=== PATIENT | male | born 1935 | race Caucasian/White ===

== ENCOUNTER 2021-02-20 17:43 | Inpatient (IN) ==
[2021-02-20] MEDS ORDERED: 0.9 % SODIUM CHLORIDE 1,000 ML IV SCH (18:15)
--- NOTE | 2021-02-20 18:33 | XRay Report ---
HISTORY: Increased confusion and weakness FINDINGS: ill-defined alveolar infiltrates are developing in both lungs, predominantly in the lower lobes. This is superimposed upon underlying pulmonary fibrosis. A recent neck CT done on 02/13/21 demonstrated moderate emphysema in the upper lobes. Heart size is normal. There is no apparent congestive heart failure. A shunt catheter extends from the right side of the neck, across the right chest wall to the abdomen. Moderate arthritis is present in both shoulders. There are several calcifications inferior to the left coracoid process which may be calcified loose bodies in the joint recess. IMPRESSION: Pneumonia superimposed upon underlying emphysema and pulmonary fibrosis Interpreted and Authenticated by: Cheo Concepcion 02/20/21
--- NOTE | 2021-02-20 19:06 | Emergency Department Note ---
Altered Mental Status HPI <Nicolle Downey PA-C - Last Filed: 02/20/21 20:44> General Chief Complaint: Altered Mental Status Stated Complaint: Confusion/weakness Time Seen by Provider: 02/20/21 18:02 Source: EMS Mode of arrival: EMS Limitations: altered mental status History of Present Illness HPI Narrative: This an 85-year-old male with Alzheimer's dementia who lives at an adult care facility who was sent over by his caregivers for acute change in mental status. I spoken with his caregiver, Anastasiia, by telephone and she tells me that he became acutely confused with hallucinations this morning. He is usually verbal and jokes with his caregivers, but she states he has been nonverbal most of the day. He is diabetic and his blood glucose was 240 this morning. He had no new medications, should he is incontinent of urine but she states that his depends have had no materia or foul-smelling urine. He had normal BM just before coming over to the ER by EMS. She states that his fingers have been purple and he has had poor capillary refill. She does not know if he has a history of hear t disease. She denies that he is had any witnessed falls or traumatic events. His past medical history significant for COPD, acute urinary retention, type 2 diabetes, diabetic neuropathy, history of CVA, and left ORIF for right femoral fracture. I have reviewed the patient's CODE STATUS and he is DNR. His DPOA is Jose Martin Greene at [phone]. Caregiver at [facility] is Anastasiia [phone] Related Data Home Medications Medication Instructions Recorded Confirmed acetaminophen 500 mg tablet 500 mg PO Q4H PRN 12/21/17 02/20/21 cyanocobalamin (vitamin B-12) 100 1,000 mcg .ROUTE QWEEK 12/21/17 02/20/21 mcg/mL injection solution famotidine 20 mg tablet 20 mg PO Q12H tab 12/21/17 02/20/21 hydrocortisone 1 % topical cream 1 applic TOPICAL ONCE PRN g 12/21/17 02/20/21 insulin glargine 100 unit/mL 10 unit SUB-Q QAM ml 12/21/17 02/20/21 subcutaneous solution metformin 500 mg tablet 1,000 mg PO BID 12/21/17 02/20/21 bisacodyl 5 mg tablet 10 mg PO QHS 08/10/18 07/22/21 docusate sodium 100 mg tablet 100 mg PO BID 03/11/18 02/20/21 midodrine 10 mg tablet 5 mg PO QDAY tab 03/11/18 02/20/21 polysaccharide iron complex 150 mg 150 mg PO QDAY cap 03/11/18 02/20/21 iron capsule carboxymethylcellulose sodium 1 drp OPHTHALMIC (EYE) TID 02/13/20 02/20/21 [Artificial Tears (cmc)] flecainide 100 mg PO BID 02/13/20 02/20/21 megestrol 200 mg PO DAILY 02/13/20 02/20/21 tamsulosin 0.4 mg PO BID 02/13/20 02/20/21 bisacodyl 10 mg VA PRN PRN 02/20/21 02/20/21 bupropion HCl [Wellbutrin XL] 300 mg PO QAM 02/20/21 02/20/21 clonazepam 0.5 mg PO BID 02/20/21 02/20/21 epinephrine [EpiPen 2-Trav] 0.3 mg SUBCUT PRN PRN 02/20/21 02/20/21 eyelid cleanser combination 1 1 ea TOPICAL BID 02/20/21 02/20/21 [SteriLid] gabapentin 100 mg PO BID 02/20/21 02/20/21 loratadine [Claritin] 10 mg PO QHS 02/20/21 02/20/21 ondansetron [Zofran ODT] 4 mg PO PRN PRN 02/20/21 02/20/21 zinc sulfate 220 mg PO DAILY 02/20/21 02/20/21 Allergies Allergy/AdvReac Type Severity Reaction Status Date / Time rivastigmine [From Exelon] Allergy Unknown Unknown Verified 02/13/20 12:30 fish sauce Allergy Severe Other Uncoded 02/09/18 14:41 Review of Systems <Nicolle Downey PA-C - Last Filed: 02/20/21 20:44> ROS ROS Narrative: Narrative: PFSH <Nicolle Downey PA-C - Last Filed: 02/20/21 20:44> Narrative Patient History Narrative: Narrative: Medical/Surgical/Family History All Active Problems (Updated 02/20/21 @ 20:44 by Nicolle Downey PA-C) Sepsis (Acute) AMS (altered mental status) (Acute) SUZANNE (acute kidney injury) (Acute) Acute UTI (Acute) Acute hyperkalemia (Acute) Anemia, normocytic normochromic (Acute) Delirium (Acute) Stage 1 acute kidney injury (Acute) Hyperkalemia (Acute) T2DM (type 2 diabetes mellitus) (Acute) Clinical sepsis (Acute) Bilateral pneumonia (Acute) Fracture of greater trochanter of right femur (Acute) Chest pain (Acute) Chest pain, non-cardiac (Acute) Abnormal chest x-ray (Acute) Constipation (Acute) Fall (Acute) Hematoma of frontal scalp (Acute) Dementia (Acute) Accidental fall from wheelchair (Acute) Acute head trauma (Acute) Laceration of eyebrow and forehead (Acute) Chronic subdural hematoma (Acute) Cerumen impaction (Chronic) Hypoalbuminemia (Chronic) Hypokalemia (Chronic) History of stroke (Chronic) 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 (Chronic) Nocturia (Chronic) Alzheimer disease (Chronic) Hyperlipidemia (Chronic) 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) Hyponatremia (Chronic) Lumbago (Chronic) History of UTI (Chronic) History of urinary incontinence (Chronic) History of leukocytosis (Chronic) 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) Hypertension (Chronic) History of pneumonia (Chronic) Adult failure to thrive (Chronic) Advanced dementia (Chronic) Weakness generalized (Chronic) Anemia (Chronic) History of gastrointestinal bleeding (Chronic) History of transurethral resection of prostate (Chronic) Urinary retention (Chronic) Diabetes mellitus (Chronic) Dehydration (Chronic) Sepsis (Chronic) Severe sepsis (Chronic) Spinal stenosis of lumbar region at multiple levels (Chronic) 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) Urinary tract infection (Chronic) Acute retention of urine (Chronic) Medical History (Updated 02/20/21 @ 20:44 by Nicolle Downey PA-C) 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 Adult failure to thrive Advanced dementia Alzheimer disease Anemia Cerumen impaction COPD (chronic obstructive pulmonary disease) with chronic bronchitis Degenerative joint disease of right hip Dehydration Diabetes mellitus History of gastrointestinal bleeding History of leukocytosis History of pneumonia History of stroke History of urinary incontinence History of UTI Hyperlipidemia Hypertension Hypoalbuminemia Hypokalemia Hyponatremia Lumbago Nocturia Sepsis Severe sepsis Spinal stenosis of lumbar region at multiple levels Type 2 diabetes mellitus with peripheral neuropathy Urinary retention Weakness generalized Surgical History History of hip replacement Right, 08/2008 History of open reduction and internal fixation (ORIF) procedure Left Hip, 02/26/17 History of thumb surgery Right History of transurethral resection of prostate 2010 History of ventriculoperitoneal shunting 10/20/16 S/P orchiopexy 2013 Family History Other Diabetes Social History Smoking Status: Former smoker Alcohol Intake Frequency: does not drink Substance Use: does not use Exam <Nicolle Downey PA-C - Last Filed: 02/20/21 20:44> Narrative Narrative: Narrative: General Limitations: altered mental status Course <Nicolle Downey PA-C - Last Filed: 02/20/21 20:44> Course Course Narrative: 85 y/o male presents with acute AMS Reevaluation(s) Reevaluation #1: Check head CT without contrast CBC, CMP, UA, CXR IV and IVF's Reevaluation #2: Head CT is negative for acute changes compared to CT scan from 02/13/21. No worsening hydrocephaly. Stable chronic findings (please see radiology note for further details). CXR with developing B/L LL infiltrates. UA shows infection. CBC with WBC of 23,600 and left shift. Lactic acid 3.6. Sepsis protocol initiated 30ml/kg IVF resuscitation. Initiation of BSA with vanco/zoysn. BCX x 2 pending. Hospitalist contacted for admission---> potassium is 5.6. Cr is 1.3. Hospitalist aware and will manage. Vital Signs Vital signs: Vital Signs Temperature 98.4 F 02/20/21 17:45 Pulse Rate 86 02/20/21 17:45 Respiratory Rate 18 02/20/21 17:45 Blood Pressure 105/89 02/20/21 17:45 Pulse Oximetry (%) 93 02/20/21 17:45 Temperature 98.2 F 02/21/21 19:42 Pulse Rate 82 02/21/21 19:42 Respiratory Rate 16 02/21/21 19:42 Blood Pressure 119/64 02/21/21 19:42 Pulse Oximetry (%) 96 02/21/21 19:52 <Yaron Nieto DO - Last Filed: 02/21/21 23:51> Vital Signs Vital signs: Vital Signs Temperature 98.4 F 02/20/21 17:45 Pulse Rate 86 02/20/21 17:45 Respiratory Rate 18 02/20/21 17:45 Blood Pressure 105/89 02/20/21 17:45 Pulse Oximetry (%) 93 02/20/21 17:45 Temperature 98.2 F 02/21/21 19:42 Pulse Rate 82 02/21/21 19:42 Respiratory Rate 16 02/21/21 19:42 Blood Pressure 119/64 02/21/21 19:42 Pulse Oximetry (%) 96 02/21/21 19:52 MDM <Nicolle Downey PA-C - Last Filed: 02/20/21 20:44> MDM Narrative Medical decision making narrative: Sepsis Altered mental status UTI SZUANNE Hyperkalemia Sepsis treatments have been initiated. BSA started and bcx x 2 pending. Admitted to the hospitalist service, Dr. Redd Lab Data Result diagrams: 02/21/21 05:27 02/21/21 05:27 Labs: Lab Results 02/20/21 02/20/21 02/20/21 Range/Units 18:30 18:30 18:30 WBC 25.6 H (4.5-11.0) K/mcL RBC 4.03 L (4.50-5.90) M/mcL Hgb 12.2 L (13.5-16.5) g/dL Hct 38.8 L (41.0-55.0) % MCV 96.3 (80.0-100.0) fL MCH 30.3 (26.0-34.0) pg MCHC 31.4 (31.0-36.0) g/dL RDW 13.2 (11.5-14.5) % Plt Count 249 (140-440) K/mcL MPV 12.1 H (7.4-10.4) fL Seg Neutrophils % 85 H (38-78) % Band Neutrophils % 3 (0-10) % Lymphocytes % 8 L (15-49) % Monocytes % (Manual) 4 (1-12) % Platelet Estimate Normal (Normal) RBC Morphology Normal (Normal) VBG Lactic Acid (0.5-2.0) mmol/L Sodium 138 (133-145) mmol/L Potassium 5.6 H (3.3-5.1) mmol/L Chloride 103 (96-108) mmol/L Carbon Dioxide 24 (22-30) mmol/L Anion Gap 11.0 (8.0-16.0) BUN 31 H (8-23) mg/dL Creatinine 1.3 H (0.7-1.2) mg/dL GFR Calculation 50 Glucose 223 H (70-105) mg/dL Hemoglobin A1c (4.0-6.0) % Hgb Estim Average Glucose mg/dL Calcium 8.8 (8.6-10.4) mg/dL Total Bilirubin 0.4 (0.1-1.0) mg/dL AST 12 (<40) U/L ALT 8 (<40) U/L Alkaline Phosphatase 94 (39-117) U/L Ammonia (16-60) umol/L Total Protein 7.5 (5.9-8.4) gm/dL Albumin 3.4 (3.2-5.2) gm/dL Globulin 4.1 H (2.2-3.7) gm/dL Albumin/Globulin Ratio 0.8 L (1.0-2.3) Procalcitonin 0.20 H (<0.10) ng/mL Urine Color Urine Appearance (Clear) Urine pH (5.0-9.0) Ur Specific [place] (1.000-1.035) Urine Protein (Negative) mg/dL Urine Glucose (UA) (Negative) mg/dL Urine Ketones (Negative) mg/dL Urine Occult Blood (Negative) mg/dL Urine Nitrate (Negative) Urine Bilirubin (Negative) mg/dL Urine Urobilinogen mg/dL Ur Leukocyte Esterase (Negative) /ug Urine RBC (0-3) /hpf Urine WBC (0-4) /hpf Ur Squamous Epith Cells (0-4) /hpf Urine Bacteria (0) /hpf Urine Mucus (None) /hpf Ur Culture Indicated? 02/20/21 02/20/21 02/20/21 Range/Units 18:30 18:39 19:40 WBC (4.5-11.0) K/mcL RBC (4.50-5.90) M/mcL Hgb (13.5-16.5) g/dL Hct (41.0-55.0) % MCV (80.0-100.0) fL MCH (26.0-34.0) pg MCHC (31.0-36.0) g/dL RDW (11.5-14.5) % Plt Count (140-440) K/mcL MPV (7.4-10.4) fL Seg Neutrophils % (38-78) % Band Neutrophils % (0-10) % Lymphocytes % (15-49) % Monocytes % (Manual) (1-12) % Platelet Estimate (Normal) RBC Morphology (Normal) VBG Lactic Acid 3.6 H (0.5-2.0) mmol/L Sodium (133-145) mmol/L Potassium (3.3-5.1) mmol/L Chloride (96-108) mmol/L Carbon Dioxide (22-30) mmol/L Anion Gap (8.0-16.0) BUN (8-23) mg/dL Creatinine (0.7-1.2) mg/dL GFR Calculation Glucose (70-105) mg/dL Hemoglobin A1c 7.1 H (4.0-6.0) % Hgb Estim Average Glucose 157 mg/dL Calcium (8.6-10.4) mg/dL Total Bilirubin (0.1-1.0) mg/dL AST (<40) U/L ALT (<40) U/L Alkaline Phosphatase (39-117) U/L Ammonia (16-60) umol/L Total Protein (5.9-8.4) gm/dL Albumin (3.2-5.2) gm/dL Globulin (2.2-3.7) gm/dL Albumin/Globulin Ratio (1.0-2.3) Procalcitonin (<0.10) ng/mL Urine Color Yellow Urine Appearance Cloudy A (Clear) Urine pH 5.0 (5.0-9.0) Ur Specific [place] 1.013 (1.000-1.035) Urine Protein 30 A (Negative) mg/dL Urine Glucose (UA) Negative (Negative) mg/dL Urine Ketones Negative (Negative) mg/dL Urine Occult Blood Negative (Negative) mg/dL Urine Nitrate Negative (Negative) Urine Bilirubin Negative (Negative) mg/dL Urine Urobilinogen Negative mg/dL Ur Leukocyte Esterase 500 A (Negative) /ug Urine RBC 20 H (0-3) /hpf Urine WBC > 182 H (0-4) /hpf Ur Squamous Epith Cells 2 (0-4) /hpf Urine Bacteria Many A (0) /hpf Urine Mucus Mod A (None) /hpf Ur Culture Indicated? yes 02/20/21 Range/Units 20:38 WBC (4.5-11.0) K/mcL RBC (4.50-5.90) M/mcL Hgb (13.5-16.5) g/dL Hct (41.0-55.0) % MCV (80.0-100.0) fL MCH (26.0-34.0) pg MCHC (31.0-36.0) g/dL RDW (11.5-14.5) % Plt Count (140-440) K/mcL MPV (7.4-10.4) fL Seg Neutrophils % (38-78) % Band Neutrophils % (0-10) % Lymphocytes % (15-49) % Monocytes % (Manual) (1-12) % Platelet Estimate (Normal) RBC Morphology (Normal) VBG Lactic Acid (0.5-2.0) mmol/L Sodium (133-145) mmol/L Potassium (3.3-5.1) mmol/L Chloride (96-108) mmol/L Carbon Dioxide (22-30) mmol/L Anion Gap (8.0-16.0) BUN (8-23) mg/dL Creatinine (0.7-1.2) mg/dL GFR Calculation Glucose (70-105) mg/dL Hemoglobin A1c (4.0-6.0) % Hgb Estim Average Glucose mg/dL Calcium (8.6-10.4) mg/dL Total Bilirubin (0.1-1.0) mg/dL AST (<40) U/L ALT (<40) U/L Alkaline Phosphatase (39-117) U/L Ammonia 21 (16-60) umol/L Total Protein (5.9-8.4) gm/dL Albumin (3.2-5.2) gm/dL Globulin (2.2-3.7) gm/dL Albumin/Globulin Ratio (1.0-2.3) Procalcitonin (<0.10) ng/mL Urine Color Urine Appearance (Clear) Urine pH (5.0-9.0) Ur Specific [place] (1.000-1.035) Urine Protein (Negative) mg/dL Urine Glucose (UA) (Negative) mg/dL Urine Ketones (Negative) mg/dL Urine Occult Blood (Negative) mg/dL Urine Nitrate (Negative) Urine Bilirubin (Negative) mg/dL Urine Urobilinogen mg/dL Ur Leukocyte Esterase (Negative) /ug Urine RBC (0-3) /hpf Urine WBC (0-4) /hpf Ur Squamous Epith Cells (0-4) /hpf Urine Bacteria (0) /hpf Urine Mucus (None) /hpf Ur Culture Indicated? ED POC Tests ED POC Tests: ALANNA - SARS Antigen Negative <Yaron Nieto DO - Last Filed: 02/21/21 23:51> Lab Data Labs: Lab Results 02/20/21 02/20/21 02/20/21 Range/Units 18:30 18:30 18:30 WBC 25.6 H (4.5-11.0) K/mcL RBC 4.03 L (4.50-5.90) M/mcL Hgb 12.2 L (13.5-16.5) g/dL Hct 38.8 L (41.0-55.0) % MCV 96.3 (80.0-100.0) fL MCH 30.3 (26.0-34.0) pg MCHC 31.4 (31.0-36.0) g/dL RDW 13.2 (11.5-14.5) % Plt Count 249 (140-440) K/mcL MPV 12.1 H (7.4-10.4) fL Seg Neutrophils % 85 H (38-78) % Band Neutrophils % 3 (0-10) % Lymphocytes % 8 L (15-49) % Monocytes % (Manual) 4 (1-12) % Platelet Estimate Normal (Normal) RBC Morphology Normal (Normal) VBG Lactic Acid (0.5-2.0) mmol/L Sodium 138 (133-145) mmol/L Potassium 5.6 H (3.3-5.1) mmol/L Chloride 103 (96-108) mmol/L Carbon Dioxide 24 (22-30) mmol/L Anion Gap 11.0 (8.0-16.0) BUN 31 H (8-23) mg/dL Creatinine 1.3 H (0.7-1.2) mg/dL GFR Calculation 50 Glucose 223 H (70-105) mg/dL Hemoglobin A1c (4.0-6.0) % Hgb Estim Average Glucose mg/dL Calcium 8.8 (8.6-10.4) mg/dL Total Bilirubin 0.4 (0.1-1.0) mg/dL AST 12 (<40) U/L ALT 8 (<40) U/L Alkaline Phosphatase 94 (39-117) U/L Ammonia (16-60) umol/L Total Protein 7.5 (5.9-8.4) gm/dL Albumin 3.4 (3.2-5.2) gm/dL Globulin 4.1 H (2.2-3.7) gm/dL Albumin/Globulin Ratio 0.8 L (1.0-2.3) Procalcitonin 0.20 H (<0.10) ng/mL Urine Color Urine Appearance (Clear) Urine pH (5.0-9.0) Ur Specific [place] (1.000-1.035) Urine Protein (Negative) mg/dL Urine Glucose (UA) (Negative) mg/dL Urine Ketones (Negative) mg/dL Urine Occult Blood (Negative) mg/dL Urine Nitrate (Negative) Urine Bilirubin (Negative) mg/dL Urine Urobilinogen mg/dL Ur Leukocyte Esterase (Negative) /ug Urine RBC (0-3) /hpf Urine WBC (0-4) /hpf Ur Squamous Epith Cells (0-4) /hpf Urine Bacteria (0) /hpf Urine Mucus (None) /hpf Ur Culture Indicated? 02/20/21 02/20/21 02/20/21 Range/Units 18:30 18:39 19:40 WBC (4.5-11.0) K/mcL RBC (4.50-5.90) M/mcL Hgb (13.5-16.5) g/dL Hct (41.0-55.0) % MCV (80.0-100.0) fL MCH (26.0-34.0) pg MCHC (31.0-36.0) g/dL RDW (11.5-14.5) % Plt Count (140-440) K/mcL MPV (7.4-10.4) fL Seg Neutrophils % (38-78) % Band Neutrophils % (0-10) % Lymphocytes % (15-49) % Monocytes % (Manual) (1-12) % Platelet Estimate (Normal) RBC Morphology (Normal) VBG Lactic Acid 3.6 H (0.5-2.0) mmol/L Sodium (133-145) mmol/L Potassium (3.3-5.1) mmol/L Chloride (96-108) mmol/L Carbon Dioxide (22-30) mmol/L Anion Gap (8.0-16.0) BUN (8-23) mg/dL Creatinine (0.7-1.2) mg/dL GFR Calculation Glucose (70-105) mg/dL Hemoglobin A1c 7.1 H (4.0-6.0) % Hgb Estim Average Glucose 157 mg/dL Calcium (8.6-10.4) mg/dL Total Bilirubin (0.1-1.0) mg/dL AST (<40) U/L ALT (<40) U/L Alkaline Phosphatase (39-117) U/L Ammonia (16-60) umol/L Total Protein (5.9-8.4) gm/dL Albumin (3.2-5.2) gm/dL Globulin (2.2-3.7) gm/dL Albumin/Globulin Ratio (1.0-2.3) Procalcitonin (<0.10) ng/mL Urine Color Yellow Urine Appearance Cloudy A (Clear) Urine pH 5.0 (5.0-9.0) Ur Specific [place] 1.013 (1.000-1.035) Urine Protein 30 A (Negative) mg/dL Urine Glucose (UA) Negative (Negative) mg/dL Urine Ketones Negative (Negative) mg/dL Urine Occult Blood Negative (Negative) mg/dL Urine Nitrate Negative (Negative) Urine Bilirubin Negative (Negative) mg/dL Urine Urobilinogen Negative mg/dL Ur Leukocyte Esterase 500 A (Negative) /ug Urine RBC 20 H (0-3) /hpf Urine WBC > 182 H (0-4) /hpf Ur Squamous Epith Cells 2 (0-4) /hpf Urine Bacteria Many A (0) /hpf Urine Mucus Mod A (None) /hpf Ur Culture Indicated? yes 02/20/21 Range/Units 20:38 WBC (4.5-11.0) K/mcL RBC (4.50-5.90) M/mcL Hgb (13.5-16.5) g/dL Hct (41.0-55.0) % MCV (80.0-100.0) fL MCH (26.0-34.0) pg MCHC (31.0-36.0) g/dL RDW (11.5-14.5) % Plt Count (140-440) K/mcL MPV (7.4-10.4) fL Seg Neutrophils % (38-78) % Band Neutrophils % (0-10) % Lymphocytes % (15-49) % Monocytes % (Manual) (1-12) % Platelet Estimate (Normal) RBC Morphology (Normal) VBG Lactic Acid (0.5-2.0) mmol/L Sodium (133-145) mmol/L Potassium (3.3-5.1) mmol/L Chloride (96-108) mmol/L Carbon Dioxide (22-30) mmol/L Anion Gap (8.0-16.0) BUN (8-23) mg/dL Creatinine (0.7-1.2) mg/dL GFR Calculation Glucose (70-105) mg/dL Hemoglobin A1c (4.0-6.0) % Hgb Estim Average Glucose mg/dL Calcium (8.6-10.4) mg/dL Total Bilirubin (0.1-1.0) mg/dL AST (<40) U/L ALT (<40) U/L Alkaline Phosphatase (39-117) U/L Ammonia 21 (16-60) umol/L Total Protein (5.9-8.4) gm/dL Albumin (3.2-5.2) gm/dL Globulin (2.2-3.7) gm/dL Albumin/Globulin Ratio (1.0-2.3) Procalcitonin (<0.10) ng/mL Urine Color Urine Appearance (Clear) Urine pH (5.0-9.0) Ur Specific [place] (1.000-1.035) Urine Protein (Negative) mg/dL Urine Glucose (UA) (Negative) mg/dL Urine Ketones (Negative) mg/dL Urine Occult Blood (Negative) mg/dL Urine Nitrate (Negative) Urine Bilirubin (Negative) mg/dL Urine Urobilinogen mg/dL Ur Leukocyte Esterase (Negative) /ug Urine RBC (0-3) /hpf Urine WBC (0-4) /hpf Ur Squamous Epith Cells (0-4) /hpf Urine Bacteria (0) /hpf Urine Mucus (None) /hpf Ur Culture Indicated? ED POC Tests ED POC Tests: ALANNA - SARS Antigen Negative Discharge Plan Patient/Caregiver Discharge Instructions Pt seen by JEWEL BEARING BROACHER/PA only: Yes Clinical Impression: Sepsis, AMS (altered mental status), SUZANNE (acute kidney injury), Acute UTI, Acute hyperkalemia Patient Disposition: Xfer As Inpt ([facility]) Condition: Serious Discharge Date/Time: 02/20/21 21:18
[2021-02-20 19:11] LABS: Hematocrit 38.8 % (41.0-55.0); Hemoglobin 12.2 g/dL (13.5-16.5); Mean Cell Volume 96.3 fL (80.0-100.0); Mean Corpuscular HGB Conc 31.4 g/dL (31.0-36.0); Mean Platelet Volume 12.1 fL (7.4-10.4); Platelet Count 249 K/mcL (140-440); RBC 4.03 M/mcL (4.50-5.90); Red Cell Distribution Width 13.2 % (11.5-14.5); WBC 25.6 K/mcL (4.5-11.0)
[2021-02-20] MEDS ORDERED: cefTRIAXone 1 GM VIAL IV ONE (19:17)
[2021-02-20] MEDS ORDERED: 0.9 % SODIUM CHLORIDE 1,000 ML IV ONE (19:19)
[2021-02-20] MEDS ORDERED: VANCOMYCIN PER PHARMACY IV ONE (19:20)
[2021-02-20] MEDS ORDERED: PIPERACILLIN SODIUM/TAZOBACTAM 3.375 GM in DEXTROSE 5% IN WATER 50 ML IV ONE (19:21)
[2021-02-20] MEDS ORDERED: VANCOMYCIN 1,500 MG in 0.9 % SODIUM CHLORIDE 500 ML IV ONE (19:21)
[2021-02-20 19:29] LABS: ALT/SGPT 8 U/L (<40); AST/SGOT 12 U/L (<40); Albumin 3.4 gm/dL (3.2-5.2); Albumin/Globulin Ratio 0.8 (1.0-2.3); Alkaline Phosphatase 94 U/L (39-117); Bilirubin,Total 0.4 mg/dL (0.1-1.0); Blood Urea Nitrogen 31 mg/dL (8-23); Calcium 8.8 mg/dL (8.6-10.4); Carbon Dioxide 24 mmol/L (22-30); Chloride 103 mmol/L (96-108); Globulin 4.1 gm/dL (2.2-3.7); Glomerular Filtration Rate 50; Glucose 223 mg/dL (70-105)
[2021-02-20 19:55] LABS: Appearance,Urine CLOUDY (Clear); Bacteria,Urine MANY /hpf (0); Bilirubin,Urine Negative (Negative); Color,Urine Yellow; Culture Indicated,Urine yes; Glucose,Urine (UA) Negative (Negative); Ketones,Urine Negative (Negative); Leukocyte Esterase,Urine 500 /ug (Negative); Mucus,Urine MOD /hpf; Nitrate,Urine Negative (Negative); Protein,Urine 30 mg/dL (Negative); Specific Gravity,Urine 1.013 (1.000-1.035); Urine Blood Negative (Negative); Urine RBC 20 /hpf (0-3); Urine Squamous Epithelial Cell 2 /hpf (0-4); Urine WBC > 182 /hpf (0-4); Urobilinogen,Urine Negative
[2021-02-20] MEDS ORDERED: FUROSEMIDE 20 MG/2 ML VIAL IV ONE (19:59)
[2021-02-20] MEDS ORDERED: DEXTROSE 31 GM ORAL.SUSP PO PRN (20:13)
[2021-02-20] MEDS ORDERED: DEXTROSE 50% 50 ML VIAL IV PRN (20:13)
[2021-02-20] MEDS ORDERED: ONDANSETRON 4 MG/2 ML VIAL IV PRN (20:14)
[2021-02-20] MEDS ORDERED: INSULIN REGULAR, HUMAN 1 UNIT/0.01 ML UNIT SQ ONE (20:14)
[2021-02-20] MEDS ORDERED: IPRATROPIUM/ALBUTEROL 3 ML AMPUL.NEB NEB PRN (20:16)
--- NOTE | 2021-02-20 20:25 | Internal Med History&Physical ---
HPI History of Present Illness Patient information: Note initiated : 02/20/21 at 8:22 pm Service Date, if different from initiated Date: [] Patient: Kiet Braun a 85 y/o M admitted on for Confusion/weakness. Chief Complaint: [altered mental status] History of present illness: Mr. Braun is a 85 year old M history of Alzheimer dementia, s/p [employer] shunt, type 2 diabetes mellitus, presenting with 1 day history of altered mental status. Patient is a adult family home residence. He had an episode of accidental fall on February 13, 2021 and he was seen in our ER for suturing of a scalp ulcer. He was in his usual state of health until this morning found by facility staff to be lethargic and altered mental status and minimally responsive to voice. As a result, EMS was called to send patient to our ER for evaluations. Vital signs within normal limits. Labs significant for leukocytosis with WBC 25.6. Serum creatinine level slightly elevated to 1.3. Serum potassium level elevated to 5.6. Lactic acid pending. UA suggests the presence of urinary tract infections. Chest x-ray reading potential bilateral lung base pneumonia. CT of the head no contrast showed absence of any acute intracranial pathologies. Spoke with son and POA Jose Martin Castellon, who comfirmed DNI DNR but okay for medical treatment for infection. Review of Systems ROS unobtainable: due to mental status PFSH PFSH All Active Problems (Updated 02/20/21 @ 20:22 by Juan Alberto Redd MD) Anemia, normocytic normochromic (Acute) Delirium (Acute) Stage 1 acute kidney injury (Acute) Hyperkalemia (Acute) T2DM (type 2 diabetes mellitus) (Acute) Clinical sepsis (Acute) Bilateral pneumonia (Acute) Fracture of greater trochanter of right femur (Acute) Chest pain (Acute) Chest pain, non-cardiac (Acute) Abnormal chest x-ray (Acute) Constipation (Acute) Fall (Acute) Hematoma of frontal scalp (Acute) Dementia (Acute) Accidental fall from wheelchair (Acute) Acute head trauma (Acute) Laceration of eyebrow and forehead (Acute) Chronic subdural hematoma (Acute) Cerumen impaction (Chronic) Hypoalbuminemia (Chronic) Hypokalemia (Chronic) History of stroke (Chronic) 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 (Chronic) Nocturia (Chronic) Alzheimer disease (Chronic) Hyperlipidemia (Chronic) 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) Hyponatremia (Chronic) Lumbago (Chronic) History of UTI (Chronic) History of urinary incontinence (Chronic) History of leukocytosis (Chronic) 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) Hypertension (Chronic) History of pneumonia (Chronic) Adult failure to thrive (Chronic) Advanced dementia (Chronic) Weakness generalized (Chronic) Anemia (Chronic) History of gastrointestinal bleeding (Chronic) History of transurethral resection of prostate (Chronic) Urinary retention (Chronic) Diabetes mellitus (Chronic) Dehydration (Chronic) Sepsis (Chronic) Severe sepsis (Chronic) Spinal stenosis of lumbar region at multiple levels (Chronic) 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) Urinary tract infection (Chronic) Acute retention of urine (Chronic) Medical History (Updated 02/20/21 @ 20:22 by Juan Alberto Redd MD) 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 Adult failure to thrive Advanced dementia Alzheimer disease Anemia Cerumen impaction COPD (chronic obstructive pulmonary disease) with chronic bronchitis Degenerative joint disease of right hip Dehydration Diabetes mellitus History of gastrointestinal bleeding History of leukocytosis History of pneumonia History of stroke History of urinary incontinence History of UTI Hyperlipidemia Hypertension Hypoalbuminemia Hypokalemia Hyponatremia Lumbago Nocturia Sepsis Severe sepsis Spinal stenosis of lumbar region at multiple levels Type 2 diabetes mellitus with peripheral neuropathy Urinary retention Weakness generalized Surgical History History of hip replacement Right, 08/2008 History of open reduction and internal fixation (ORIF) procedure Left Hip, 02/26/17 History of thumb surgery Right History of transurethral resection of prostate 2010 History of ventriculoperitoneal shunting 10/20/16 S/P orchiopexy 2013 Family History Other Diabetes Social History (Updated 03/11/18 @ 11:15 by Brown Olivares MD) housing: assisted living facility marital status: occupational status: retired alcohol intake frequency: does not drink substance use type: does not use MEDS/ALLERGIES Home Medications and Allergies Home Medications Medication Instructions Recorded Confirmed Type acetaminophen 500 mg tablet 500 mg PO Q4H PRN 12/21/17 02/13/20 History cyanocobalamin (vitamin B-12) 100 1,000 mcg .ROUTE QWEEK 12/21/17 02/13/20 History mcg/mL injection solution famotidine 20 mg tablet 20 mg PO Q12H tab 12/21/17 02/13/20 History hydrocortisone 1 % topical cream 1 applic TOPICAL ONCE PRN g 12/21/17 02/13/20 History insulin glargine 100 unit/mL 10 unit SUB-Q QAM ml 12/21/17 02/13/20 History subcutaneous solution metformin 500 mg tablet 1,000 mg PO BID 12/21/17 02/13/20 History bisacodyl 5 mg tablet 10 mg PO QHS 03/11/18 02/13/20 History bupropion HCl 150 mg 24 hr tablet, 150 mg PO QAM 03/11/18 02/13/20 History extended release docusate sodium 100 mg tablet 100 mg PO QDAY 03/11/18 02/13/20 History midodrine 10 mg tablet 5 mg PO QDAY tab 03/11/18 02/13/20 History polysaccharide iron complex 150 mg 150 mg PO QDAY cap 03/11/18 02/13/20 History iron capsule carboxymethylcellulose sodium 1 drp OPHTHALMIC (EYE) TID 02/13/20 02/13/20 History [Artificial Tears (cmc)] flecainide 100 mg PO BID 02/13/20 02/13/20 History fluticasone furoate 2 spray INTRANASAL QDAY 02/13/20 02/13/20 History megestrol 200 mg PO DAILY 02/13/20 02/13/20 History tamsulosin 0.4 mg PO BID 02/13/20 02/13/20 History Allergies Allergy/AdvReac Type Severity Reaction Status Date / Time rivastigmine [From Exelon] Allergy Unknown Unknown Verified 02/13/20 12:30 fish sauce Allergy Severe Other Uncoded 02/09/18 14:41 EXAM Constitutional Vitals: Temp Pulse Resp BP Pulse Ox 36.9 C 85 18 136/57 95 02/20/21 17:45 02/20/21 19:49 02/20/21 17:45 02/20/21 19:46 02/20/21 19:49 General appearance: no acute distress; no cooperative Exam: Lethargic and not responsive to voice Head Head exam: Absent atraumatic and normocephalic Additional comments: Left frontal scalp ulcer with sutures in place Eye Eye exam: Present EOMI and PERRL ENT ENT exam: Present mucous membranes moist, normal exam and normal external ear exam Additional comments: Nasal cannula in place Neck Neck exam: Present normal inspection; Absent lymphadenopathy, tenderness and thyromegaly Respiratory Respiratory exam: Absent accessory muscle use, respiratory distress and wheezes Cardiovascular Cardiovascular exam: Present normal rate and rhythm; Absent JVD GI/Abdominal GI/Abdominal exam: Present normal bowel sounds and soft; Absent organomegaly and tenderness Rectal Rectal exam: Present deferred Extremities Exam Extremities exam: Present full ROM, normal capillary refill and normal inspection; Absent tenderness Neurological Exam Neurological exam: Absent alert, CN II-XII intact, motor sensory deficit and oriented X3 Additional comments: Cranial nerve cannot be examined due to clinical situations Lethargic Not following verbal command No focal deficits observed Psychiatric Psychiatric exam: Present normal affect and normal mood; Absent anxious and depressed Skin Skin exam: Present dry and intact DATA Data Completed and Pending Labs: Labs from last 24 hours 02/20/21 02/20/21 02/20/21 19:40 18:39 18:30 WBC 25.6 H RBC 4.03 L Hgb 12.2 L Hct 38.8 L MCV 96.3 MCH 30.3 MCHC 31.4 RDW 13.2 Plt Count 249 MPV 12.1 H Platelet Estimate Pending RBC Morphology Pending VBG Lactic Acid Pending Sodium Potassium Chloride Carbon Dioxide Anion Gap BUN Creatinine GFR Calculation Glucose Calcium Total Bilirubin AST ALT Alkaline Phosphatase Total Protein Albumin Globulin Albumin/Globulin Ratio Urine Color Yellow Urine Appearance Cloudy A Urine pH 5.0 Ur Specific [place] 1.013 Urine Protein 30 A Urine Glucose (UA) Negative Urine Ketones Negative Urine Occult Blood Negative Urine Nitrate Negative Urine Bilirubin Negative Urine Urobilinogen Negative Ur Leukocyte Esterase 500 A Urine RBC 20 H Urine WBC > 182 H Ur Squamous Epith Cells 2 Urine Bacteria Many A Urine Mucus Mod A Ur Culture Indicated? yes 02/20/21 18:30 WBC RBC Hgb Hct MCV MCH MCHC RDW Plt Count MPV Platelet Estimate RBC Morphology VBG Lactic Acid Sodium 138 Potassium 5.6 H Chloride 103 Carbon Dioxide 24 Anion Gap 11.0 BUN 31 H Creatinine 1.3 H GFR Calculation 50 Glucose 223 H Calcium 8.8 Total Bilirubin 0.4 AST 12 ALT 8 Alkaline Phosphatase 94 Total Protein 7.5 Albumin 3.4 Globulin 4.1 H Albumin/Globulin Ratio 0.8 L Urine Color Urine Appearance Urine pH Ur Specific [place] Urine Protein Urine Glucose (UA) Urine Ketones Urine Occult Blood Urine Nitrate Urine Bilirubin Urine Urobilinogen Ur Leukocyte Esterase Urine RBC Urine WBC Ur Squamous Epith Cells Urine Bacteria Urine Mucus Ur Culture Indicated? A/P Assessment and plan (1) Anemia, normocytic normochromic: Status: Acute (2) Delirium: Status: Acute (3) Stage 1 acute kidney injury: Status: Acute (4) Hyperkalemia: Status: Acute (5) Clinical sepsis: Status: Acute (6) Bilateral pneumonia: Status: Acute (7) Type 2 diabetes mellitus with peripheral neuropathy: Status: Chronic (8) Alzheimer disease: Status: Chronic Narrative A/P Narrative: Assessment and Plans: 1. Delirium: DDx UTI with sepsis, pnuemonia with sepsis, progression of Alzheimer's dementia Admit to inpatient med surg Serial lactic acid Procalcitonin Ammonia level Blood culture X2 Urine culture CoVID PCR Nasal cannula oxygen titrate to achieve spo2 >=92% 2L NS bolus followed by D5NS@100cc/hr Tylenol PRN fever DuoNEB NEB q4hr PRN wheezing or SOB Rocephin Zithromax cbc w/ auto diff in the morning to trend WBC Keep patient NPO until cleared by speech therapist for swallowing evaluation 2. h/o Alzheimer's dementia complicating acute delirium: Treat underlying causes of acute delirium including UTI+/- pneumonia 3. Hyperkalemia: Serum potassium 5.6 No aggressive/invasive measures such as dialysis, confirmed with son POA Albuterol, calcium gluconate, Dextrose with regular insulin, and Lasix IV to be given in the ED Kayexalate contraindicated given mental status ECG Repeat CMP to trend serum potassium level 4. Stage 1 acute kidney injury: Avoid nephrotoxic agents IV fluid (NS bolus and D5NS continuous infusion) as per #3 Repeat CMP to trend kidney functions 5. Normocytic normochromic anemia: cbc w/ auto diff in the morning to trend H/H, transfuse pRBC if hemoglobin <7.0, active bleeding, or symptomatic 6. T2DM: HgA1c Hold Metformin or any other oral hypoglycemics Lantus 10 unit daily Insulin Aspart medium dose correctional scale q6hr Accu Chek q6hr Hypoglycemia protocol NPO with D5NS@100cc/hr until cleared by speech therapist for swallowing evaluation GI ppx: Protonix IV DVT ppx: Heparin 5000 unit SQ BID Code status: DNI DNR Prognosis: extremely guarded Disposition: inpatient med surg; PT OT SLT consulted for d/c planning Time Spent With Patient Time: Total time spent is greater than 50% in coordination of care (as documented) at patient's floor/unit and/or counseling patient: Total time spent with greater than 50% in coordination of care (as documented) at patient's floor/unit and/or counseling patient:: 25 - 35 minutes
[2021-02-20] MEDS ORDERED: cefTRIAXone 1 GM in DEXTROSE 5% IN WATER 50 ML IV SCH (20:30)
[2021-02-20 20:47] LABS: Band Neutrophils % 3 % (0-10); Lymphocytes % 8 % (15-49); Monocytes % (Manual) 4 % (1-12); Platelet Estimate NORMAL (Normal); RBC Morphology NORMAL (Normal); Segmented Neutrophils % 85 % (38-78)
[2021-02-20] MEDS ORDERED: AZITHROMYCIN 500 MG VIAL IV ONE (21:58)
[2021-02-20] MEDS: AZITHROMYCIN 500 MG in DEXTROSE 5% IN WATER 250 ML IV SCH (22:30)
[2021-02-20] MEDS: DEXTROSE 5%-NS 1,000 ML IV SCH (22:31)
[2021-02-20] MEDS: SENNOSIDES 1 TABLET PO SCH (22:33)
[2021-02-20] MEDS: DOCUSATE SODIUM 100 MG CAPSULE PO SCH (22:34)
[2021-02-20] MEDS: 0.9 % SODIUM CHLORIDE 10 ML SYRINGE IV SCH (22:35)
[2021-02-20] MEDS: HEPARIN 5,000 UNIT/ML VIAL SQ SCH (22:40)
[2021-02-20 22:53] LABS: Hemoglobin A1C 7.1 % Hgb (4.0-6.0)
[2021-02-21] MEDS: cefTRIAXone 1 GM VIAL IV SCH ×2 (00:12→12:00)
[2021-02-21] MEDS: INSULIN LISPRO 1 UNIT/0.01 ML UNIT SQ SCH ×4 (00:27→17:20)
[2021-02-21] MEDS: 0.9 % SODIUM CHLORIDE 10 ML SYRINGE IV SCH ×3 (05:40→23:26)
[2021-02-21 07:21] LABS: Basophils # (Auto) 0.07 K/mcL (0.00-0.20); Basophils % (Auto) 0.4 % (0.0-2.0); Eosinophils # (Auto) 0.13 K/mcL (0.00-0.70); Eosinophils % (Auto) 0.8 % (0.0-7.0); Hematocrit 36.1 % (41.0-55.0); Hemoglobin 11.1 g/dL (13.5-16.5); Lymphocytes % (Auto) 15.8 % (15.0-49.0); Mean Cell Volume 97.8 fL (80.0-100.0); Mean Corpuscular HGB Conc 30.7 g/dL (31.0-36.0); Mean Platelet Volume 12.2 fL (7.4-10.4); Monocytes # (Auto) 0.81 K/mcL (0.10-0.90); Monocytes % (Auto) 4.9 % (1.0-12.0); Neutrophils % (Auto) 78.1 % (38.0-78.0); Platelet Count 220 K/mcL (140-440); RBC 3.69 M/mcL (4.50-5.90); Red Cell Distribution Width 13.2 % (11.5-14.5); WBC 16.4 K/mcL (4.5-11.0)
[2021-02-21] MEDS: PANTOPRAZOLE 40 MG VIAL IV SCH (07:40)
[2021-02-21] MEDS: DEXTROSE 5%-NS 1,000 ML IV SCH ×2 (07:42→17:19)
[2021-02-21 07:49] LABS: ALT/SGPT 6 U/L (<40); AST/SGOT 13 U/L (<40); Albumin 2.5 gm/dL (3.2-5.2); Albumin/Globulin Ratio 0.6 (1.0-2.3); Alkaline Phosphatase 80 U/L (39-117); Bilirubin,Total 0.5 mg/dL (0.1-1.0); Blood Urea Nitrogen 24 mg/dL (8-23); Calcium 8.4 mg/dL (8.6-10.4); Carbon Dioxide 21 mmol/L (22-30); Chloride 108 mmol/L (96-108); Globulin 4.3 gm/dL (2.2-3.7); Glomerular Filtration Rate 78; Glucose 114 mg/dL (70-105)
--- NOTE | 2021-02-21 07:51 | Cat Scan Report ---
History: Acute confusion, prior stroke TECHNIQUE: The brain was imaged without contrast in axial plane at 2.5 mm intervals. Radiation exposure was limited using dose reduction technology. FINDINGS: There is a large old infarct with encephalomalacia involving the right temporal and parietal lobes. This also involves a small portion of the right occipital lobe. There is another smaller infarct or gliosis surrounding the ventricular peritoneal shunt catheter in the right frontal lobe. A moderate-sized old lacunar infarct is present in the head of the left caudate nucleus. There is a more subtle lacunar infarct inferiorly in the left putamen. Tiny lacunar infarcts are seen in the head of the right caudate nucleus. The infarcts are a chronic finding which were present on prior CTs done on 02/13/2021 and 05/17/2020. No acute infarct is detected. There is no hemorrhage or mass effect. A ventricular peritoneal shunt catheter passes through the frontal horn of the right lateral ventricle and through the septum pellucidum into the body of the left lateral ventricle. Lateral and third ventricles remain moderately dilated. Fourth ventricle is normal in size. There is noted transependymal reabsorption of CSF. Size of the ventricles has not changed since 05/17/20. Patient still has bilateral subdural hygroma surrounding the frontal and parietal lobes. This is largest is located over the left parietal lobe where it measures up to 11 mm. These have not changed since 02/13/21. No midline shift is present. IMPRESSION: Multiple old infarcts which remain stable No evidence of acute infarct, hemorrhage or mass lesion. Stable hydrocephalus. Stable bilateral subdural hygromas Nicolle Downey was called with the report Interpreted and Authenticated by: Cheo Concepcion 02/21/21
[2021-02-21] MEDS: INSULIN GLARGINE, HUMAN 1 UNIT/0.01 ML SQ SCH (08:54)
[2021-02-21] MEDS: HEPARIN 5,000 UNIT/ML VIAL SQ SCH (08:55)
[2021-02-21] MEDS: DOCUSATE SODIUM 100 MG CAPSULE PO SCH ×2 (08:55→23:13)
[2021-02-21] MEDS ORDERED: ACETAMINOPHEN 500 MG TABLET PO PRN (11:56)
[2021-02-21] MEDS ORDERED: BISACODYL 10 MG SUPP.RECT PR PRN (11:56)
[2021-02-21] MEDS: ACETAMINOPHEN 325 MG TABLET PO PRN ×2 (12:00→20:34)
--- NOTE | 2021-02-21 12:08 | Internal Med Progress Note ---
SUBJECTIVE Subjective Patient information: Note initiated : 02/21/21 at 12:02 pm Service Date, if different from initiated Date: [] Patient: Kiet Braun 86 y/o M admitted on 02/20/21 for Confusion/weakness. Chief Complaint: [UTI and/or pneumonia] 02/21/21: afebrile overnight. Tolerating room air. Blood and urine cultures no growth to date. Patient is nonverbal. Constitutional Vitals: Vital Signs Temp Pulse Resp BP Pulse Ox 36.2 C 87 18 119/58 91 02/21/21 07:41 02/21/21 07:41 02/21/21 07:41 02/21/21 07:41 02/21/21 07:41 Period Temp Pulse Resp BP Sys/Gilbert Pulse Ox Last 24 Hr 36.2 C-37.2 C 77-87 16-18 94-136/52-89 91-98 Intake and Output 02/20/21 02/21/21 02/21/21 21:59 05:59 13:59 Intake Total 2027 272 918 Output Total 1 Balance 2027 272 917 Weight 72.121 kg Intake & Output: Intake & Output 02/20/21 02/21/21 02/21/21 21:59 05:59 13:59 Intake Total 2027 272 918 Output Total 1 Balance 2027 272 917 Weight 72.121 kg Intake: IV 2027 272 918 Sodium Chloride 0.9% 1,000 ml @ 2000 Wide Open IV BOLUS ONE Rx#: [id number] Zithromax 500 mg In Dextrose 5% 250 in Water 250 ml @ 250 mls/hr IV DAILY [facility] Rx#:[id number] Dextrose 5%-Ns IV Solution 1, 918 000 ml @ 100 mls/hr IV .Q10H [facility] Rx#:[id number] Zosyn 3.375 gm In Dextrose 5% 28 22 in Water 50 ml @ 100 mls/hr IV ONCE ONE Rx#:[id number] Output: # of times incontinent of urine 1 Other: Urine Appearance Straight Cloudy Stool Size Large Stool Color Brown Stool Consistency Soft # Voids 3 1 General appearance: cooperative and no acute distress Head Head exam: Present atraumatic and normocephalic Eye Eye exam: Present EOMI and PERRL ENT ENT exam: Present mucous membranes moist, normal exam and normal external ear exam Neck Neck exam: Present normal inspection; Absent lymphadenopathy, tenderness and thyromegaly Respiratory Respiratory exam: Absent accessory muscle use, respiratory distress and wheezes Additional comments: Bibasilar respiratory crackles Cardiovascular Cardiovascular exam: Present normal rate and rhythm; Absent JVD GI/Abdominal GI/Abdominal exam: Present normal bowel sounds and soft; Absent organomegaly and tenderness Rectal Rectal exam: Present deferred Extremities Exam Extremities exam: Present full ROM, normal capillary refill and normal inspection; Absent tenderness Neurological Exam Neurological exam: Absent alert, CN II-XII intact, motor sensory deficit and oriented X3 Psychiatric Psychiatric exam: Present normal affect and normal mood; Absent anxious and depressed Skin Skin exam: Present dry and intact OBJ DATA Labs CBC & Chem 7: 02/21/21 05:27 02/21/21 05:27 Labs: Abnormal Lab Results 02/21/21 02/21/21 02/20/21 05:27 05:27 19:40 WBC 16.4 H RBC 3.69 L Hgb 11.1 L Hct 36.1 L MCHC 30.7 L MPV 12.2 H Neut % (Auto) 78.1 H Seg Neutrophils % Lymphocytes % Absolute Neutrophils 12.82 H VBG Lactic Acid 3.6 H Potassium Carbon Dioxide 21 L BUN 24 H Creatinine Glucose 114 H Hemoglobin A1c Calcium 8.4 L Albumin 2.5 L Globulin 4.3 H Albumin/Globulin Ratio 0.6 L Procalcitonin Urine Appearance Urine Protein Ur Leukocyte Esterase Urine RBC Urine WBC Urine Bacteria Urine Mucus 02/20/21 02/20/21 02/20/21 18:39 18:30 18:30 WBC RBC Hgb Hct MCHC MPV Neut % (Auto) Seg Neutrophils % Lymphocytes % Absolute Neutrophils VBG Lactic Acid Potassium Carbon Dioxide BUN Creatinine Glucose Hemoglobin A1c 7.1 H Calcium Albumin Globulin Albumin/Globulin Ratio Procalcitonin 0.20 H Urine Appearance Cloudy A Urine Protein 30 A Ur Leukocyte Esterase 500 A Urine RBC 20 H Urine WBC > 182 H Urine Bacteria Many A Urine Mucus Mod A 02/20/21 02/20/21 18:30 18:30 WBC 25.6 H RBC 4.03 L Hgb 12.2 L Hct 38.8 L MCHC MPV 12.1 H Neut % (Auto) Seg Neutrophils % 85 H Lymphocytes % 8 L Absolute Neutrophils VBG Lactic Acid Potassium 5.6 H Carbon Dioxide BUN 31 H Creatinine 1.3 H Glucose 223 H Hemoglobin A1c Calcium Albumin Globulin 4.1 H Albumin/Globulin Ratio 0.8 L Procalcitonin Urine Appearance Urine Protein Ur Leukocyte Esterase Urine RBC Urine WBC Urine Bacteria Urine Mucus Meds: Medications Acetaminophen (Acetaminophen 325 Mg Tablet) 650 mg PO Q6HP PRN; Protocol PRN Reason: Per Pain Protocol/Fever > 101 Last Admin: 02/21/21 12:00 Dose: 650 mg Documented by: Acetaminophen (Acetaminophen 500 Mg Tablet) 500 mg PO Q4H PRN; Protocol PRN Reason: Pain Albuterol/Ipratropium (Ipratropium/Albuterol 3 Ml Ampul.Neb) 3 ml NEB Q4HRT PRN PRN Reason: Wheezing Bisacodyl (Bisacodyl 10 Mg Supp.Rect) 10 mg HI PRN PRN PRN Reason: Constipation Bupropion HCl (Bupropion 300 Mg Tab.Xl.24h) 300 mg PO QAM [facility] Ceftriaxone Sodium (Ceftriaxone 1 Gm Vial) 1 gm IV DAILY [facility] Last Admin: 02/21/21 12:00 Dose: 1 gm Documented by: Dextrose (Dextrose 50% 50 Ml Vial) 0 ml IV UD PRN PRN Reason: Hypoglycemia Diagnostic Test (Pha) (Accu-Chek 1 Each Strip) 1 each FS ACHS [facility] Last Admin: 02/21/21 12:01 Dose: 1 each Documented by: Docusate Sodium (Docusate Sodium 100 Mg Capsule) 100 mg PO BID [facility] Last Admin: 02/21/21 08:55 Dose: 100 mg Documented by: Enoxaparin Sodium (Enoxaparin 40 Mg/0.4 Ml Syringe) 40 mg SQ DAILY [facility] Flecainide Acetate (Flecainide 100 Mg Tablet) 100 mg PO BID [facility] Gabapentin (Gabapentin 100 Mg Capsule) 100 mg PO BID [facility] Glucose (Dextrose 31 Gm Oral.Susp) 15 gm PO PRN PRN PRN Reason: Hypoglycemia Sodium Chloride (Sodium Chloride 0.9%) 1,000 mls @ 0 mls/hr IV .Q0M [facility] Last Infusion: 02/20/21 19:42 Dose: Infused Documented by: Azithromycin 500 mg/ Dextrose 250 mls @ 250 mls/hr IV DAILY [facility]; Protocol Stop: 02/22/21 09:59 Last Infusion: 02/21/21 00:13 Dose: Infused Documented by: Dextrose/Sodium Chloride (Dextrose 5%-Ns Iv Solution) 1,000 mls @ 100 mls/hr IV .Q10H [facility] Last Admin: 02/21/21 07:42 Dose: 100 mls/hr Documented by: Insulin Glargine (Insulin Glargine, Human 1 Unit/0.01 Ml) 10 unit SQ DAILY [facility] Last Admin: 02/21/21 08:54 Dose: 10 units Documented by: Insulin Human Lispro (Insulin Lispro 1 Unit/0.01 Ml Unit) 0 unit SQ Q6 [facility]; Protocol Last Admin: 02/21/21 12:02 Dose: Not Given Documented by: Loratadine (Loratadine 10 Mg Tablet) 10 mg PO QHS [facility] Megestrol Acetate (Megestrol Acetate 400 Mg/10 Ml Oral.Susp) 200 mg PO DAILY S Midodrine (Midodrine Hcl 10 Mg Tablet) 5 mg PO QDAY [facility] Non-Formulary Medication (Carboxymethylcellulose Sodium [Artificial Tears (C[facility])]) 1 drp OPHTHALMIC TID [facility] Non-Formulary Medication (Cyanocobalamin (Vitamin B-12)) 1,000 mcg .Route QWEEK [facility] Non-Formulary Medication (Eyelid Cleanser Combination 1 [Sterilid]) 1 each TOPICAL BID [facility] Non-Formulary Medication (Hydrocortisone) 1 applic TOPICAL ONCE PRN PRN Reason: Itching Non-Formulary Medication (Zinc Sulfate) 220 mg PO DAILY [facility] Ondansetron HCl (Ondansetron 4 Mg/2 Ml Vial) 4 mg IV Q6HP PRN PRN Reason: Nausea And Vomiting Pantoprazole Sodium (Pantoprazole 40 Mg Vial) 40 mg IV ACB [facility] Last Admin: 02/21/21 07:40 Dose: 40 mg Documented by: Polysaccharide Iron Complex (Iron Polysaccharide Complex 150 Mg Capsule) 150 mg PO QDAY [facility] Senna (Sennosides 1 Tablet) 2 tab PO HS [facility] Last Admin: 02/20/21 22:33 Dose: Not Given Documented by: Sodium Chloride (0.9 % Sodium Chloride 10 Ml Syringe) 10 ml IV Q8 [facility] Last Admin: 02/21/21 05:40 Dose: 10 ml Documented by: Tamsulosin HCl (Tamsulosin 0.4 Mg Capsule) 0.4 mg PO BID [facility] A/P Assessment and plan (1) Sepsis: Status: Acute (2) AMS (altered mental status): Status: Acute (3) SUZANNE (acute kidney injury): Status: Acute (4) Acute UTI: Status: Acute (5) Acute hyperkalemia: Status: Acute (6) Anemia, normocytic normochromic: Status: Acute (7) Delirium: Status: Acute (8) T2DM (type 2 diabetes mellitus): Status: Acute (9) Bilateral pneumonia: Status: Acute Narrative A/P Narrative: Assessment and Plans: 1. Delirium: DDx UTI with sepsis, pnuemonia with sepsis, progression of Alzheimer's dementia Stays in inpatient med surg Serial lactic acid Procalcitonin 0.20 mildly elevated Ammonia level 21 Blood culture X2 no growth to date Urine culture no growth to date CoVID PCR negative Nasal cannula oxygen titrate to achieve spo2 >=92% 2L NS bolus followed by D5NS@100cc/hr Tylenol PRN fever DuoNEB NEB q4hr PRN wheezing or SOB Rocephin Zithromax cbc w/ auto diff in the morning to trend WBC Keep patient NPO until cleared by speech therapist for swallowing evaluation-->recs. pureed diet 2. h/o Alzheimer's dementia complicating acute delirium: Treat underlying causes of acute delirium including UTI+/- pneumonia 3. Hyperkalemia: RESOLVED Serum potassium 5.6 at admission, 4.6 on 02/21/21 No aggressive/invasive measures such as dialysis, confirmed with son POA Albuterol, calcium gluconate, Dextrose with regular insulin, and Lasix IV to be given in the ED Kayexalate contraindicated given mental status ECG Repeat CMP to trend serum potassium level 4. Stage 1 acute kidney injury: RESOLVED Serum Cr level 1.3 at admission, 0.9 on 02/21/21 Avoid nephrotoxic agents IV fluid (NS bolus and D5NS continuous infusion) as per #3 Repeat CMP to trend kidney functions 5. Normocytic normochromic anemia: cbc w/ auto diff in the morning to trend H/H, transfuse pRBC if hemoglobin <7.0, active bleeding, or symptomatic 6. T2DM: HgA1c 7.1 Hold Metformin or any other oral hypoglycemics Lantus 10 unit daily Insulin Aspart medium dose correctional scale q6hr Accu Chek q6hr Hypoglycemia protocol NPO with D5NS@100cc/hr until cleared by speech therapist for swallowing evaluation GI ppx: Protonix IV DVT ppx: Lovenox Code status: DNI DNR Prognosis: guarded Disposition: inpatient med surg; PT OT SLT consulted for d/c planning Time Spent With Patient Time: Total time spent is greater than 50% in coordination of care (as documented) at patient's floor/unit and/or counseling patient: Total time spent with greater than 50% in coordination of care (as documented) at patient's floor/unit and/or counseling patient:: 25 - 35 minutes QUALITY VTE Deep Vein Thrombosis/Pulmonary Embolism Present on Admission: No
[2021-02-21] MEDS ORDERED: HYDROCORTISONE CRM 1% TUBE 30GM TOPICAL PRN (12:09)
[2021-02-21] MEDS: AZITHROMYCIN 500 MG in DEXTROSE 5% IN WATER 250 ML IV SCH (12:22)
--- NOTE | 2021-02-21 12:53 | EKG ---
[facility] Test Date: 2021-02-20 Pat Name: Kiet Braun Department: ED Room: Gender: Male Care Asst: : 1935 Requested By: Juan Alberto Redd Order Number: [id number] Reading MD: Hu Ceballos M.D. Measurements Intervals [place] Rate: 88 P: 0 NV: 164 QRS: -28 QRSD: 110 T: 52 QT: 400 QTc: 484 Interpretive Statements SINUS RHYTHM NONSPECIFIC INTRAVENTRICULAR CONDUCTION DELAY LOW VOLTAGE IN FRONTAL LEADS CONSIDER ANTEROSEPTAL INFARCT NO PRIOR TRACING FOR COMPARISON ABNORMAL ECG Electronically Signed On 02-21-2021 12:53:02 PDT by Hu Ceballos M.D. /[id number]
[2021-02-21] MEDS: CARBOXYMETHYLCELLULOSE SODIUM 1 EACH DROPER.GEL OU SCH ×2 (16:07→20:34)
[2021-02-21] MEDS: LORATADINE 10 MG TABLET PO SCH (20:35)
[2021-02-21] MEDS: TAMSULOSIN 0.4 MG CAPSULE PO SCH (20:35)
[2021-02-21] MEDS: GABAPENTIN 100 MG CAPSULE PO SCH (20:35)
[2021-02-21] MEDS ORDERED: EYELID CLEANSER COMBINATION TOPICAL SCH (21:00)
[2021-02-21] MEDS: SENNOSIDES 1 TABLET PO SCH (23:23)
[2021-02-22] MEDS: INSULIN LISPRO 1 UNIT/0.01 ML UNIT SQ SCH ×4 (02:26→16:24)
[2021-02-22] MEDS: FLECAINIDE 50 MG TABLET PO SCH ×3 (02:57→23:09)
[2021-02-22] MEDS: DEXTROSE 5%-NS 1,000 ML IV SCH ×4 (02:57→23:09)
[2021-02-22] MEDS: 0.9 % SODIUM CHLORIDE 10 ML SYRINGE IV SCH ×3 (06:11→23:09)
[2021-02-22 06:55] LABS: Basophils # (Auto) 0.04 K/mcL (0.00-0.20); Basophils % (Auto) 0.4 % (0.0-2.0); Eosinophils # (Auto) 0.21 K/mcL (0.00-0.70); Eosinophils % (Auto) 2.1 % (0.0-7.0); Hemoglobin 9.8 g/dL (13.5-16.5); Lymphocytes # (Auto) 3.67 K/mcL (1.50-4.80); Lymphocytes % (Auto) 36.1 % (15.0-49.0); Mean Cell Volume 96.5 fL (80.0-100.0); Mean Corpuscular HGB Conc 32.7 g/dL (31.0-36.0); Mean Platelet Volume 12.1 fL (7.4-10.4); Monocytes # (Auto) 0.85 K/mcL (0.10-0.90); Monocytes % (Auto) 8.4 % (1.0-12.0); Platelet Count 201 K/mcL (140-440); RBC 3.11 M/mcL (4.50-5.90); Red Cell Distribution Width 13.4 % (11.5-14.5); WBC 10.2 K/mcL (4.5-11.0)
[2021-02-22 07:17] LABS: ALT/SGPT 5 U/L (<40); AST/SGOT 13 U/L (<40); Albumin 2.6 gm/dL (3.2-5.2); Albumin/Globulin Ratio 0.7 (1.0-2.3); Alkaline Phosphatase 72 U/L (39-117); Bilirubin,Total 0.3 mg/dL (0.1-1.0); Blood Urea Nitrogen 19 mg/dL (8-23); Calcium 8.6 mg/dL (8.6-10.4); Carbon Dioxide 25 mmol/L (22-30); Chloride 106 mmol/L (96-108); Globulin 3.6 gm/dL (2.2-3.7); Glomerular Filtration Rate 82; Glucose 98 mg/dL (70-105)
[2021-02-22] MEDS: DOCUSATE SODIUM 100 MG CAPSULE PO SCH ×2 (07:36→23:08)
[2021-02-22] MEDS: PANTOPRAZOLE 40 MG VIAL IV SCH (09:15)
[2021-02-22] MEDS: cefTRIAXone 1 GM VIAL IV SCH (09:15)
[2021-02-22] MEDS: AZITHROMYCIN 500 MG in DEXTROSE 5% IN WATER 250 ML IV SCH (09:17)
[2021-02-22] MEDS: IRON POLYSACCHARIDE COMPLEX 150 MG CAPSULE PO SCH (09:18)
[2021-02-22] MEDS: TAMSULOSIN 0.4 MG CAPSULE PO SCH ×2 (09:18→23:08)
[2021-02-22] MEDS: MIDODRINE 5 MG TABLET PO SCH (09:19)
[2021-02-22] MEDS: MEGESTROL ACETATE 400 MG/10 ML ORAL.SUSP PO SCH (09:19)
[2021-02-22] MEDS: ENOXAPARIN 40 MG/0.4 ML SYRINGE SQ SCH (09:19)
[2021-02-22] MEDS: INSULIN GLARGINE, HUMAN 1 UNIT/0.01 ML SQ SCH (09:19)
[2021-02-22] MEDS: GABAPENTIN 100 MG CAPSULE PO SCH ×2 (09:20→23:08)
[2021-02-22] MEDS: CARBOXYMETHYLCELLULOSE SODIUM 1 EACH DROPER.GEL OU SCH ×3 (09:21→23:08)
[2021-02-22] MEDS: buPROPion 150 MG TAB.XL.24H PO SCH (09:22)
[2021-02-22] MEDS: ZINC SULFATE 50 MG CAPSULE PO SCH (09:22)
--- NOTE | 2021-02-22 10:31 | Internal Med Progress Note ---
SUBJECTIVE Subjective Patient information: Note initiated : 02/22/21 at 10:26 am Service Date, if different from initiated Date: [] Patient: Kiet Braun 86 y/o M admitted on 02/20/21 for Confusion/weakness. Chief Complaint: [UTI and pneumonia] 02/21/21: afebrile overnight. Tolerating room air. Blood and urine cultures no growth to date. Patient is nonverbal. 02/22/21: Afebrile overnight. Tolerating room air. Urine culture grew gram negative bacillus. Patient is nonverbal and refused to eat or drink or take any pills. Constitutional Vitals: Vital Signs Temp Pulse Resp BP Pulse Ox 36.6 C 84 18 99/56 92 02/22/21 08:19 02/22/21 08:19 02/22/21 08:19 02/22/21 08:19 02/22/21 08:19 Period Temp Pulse Resp BP Sys/Gilbert Pulse Ox Last 24 Hr 36.1 C-36.8 C 75-85 12-18 78-119/38-64 92-98 Intake and Output 02/21/21 02/22/21 02/22/21 21:59 05:59 13:59 Intake Total 1062 1000 Output Total 202 4 Balance 860 996 Weight 70.261 kg Intake & Output: Intake & Output 02/21/21 02/22/21 02/22/21 21:59 05:59 13:59 Intake Total 1062 1000 Output Total 202 4 Balance 860 996 Weight 70.261 kg Intake: IV 962 1000 Dextrose 5%-Ns IV Solution 1, 962 1000 000 ml @ 100 mls/hr IV .Q10H [facility] Rx#:[id number] Oral 100 Output: Void Amount 200 # of times incontinent of urine 2 4 Other: Urine Appearance Clear Urine Color Bright Yellow Stool Size Large Stool Color Brown Brown Stool Consistency Soft Soft # Voids 1 # Bowel Movements 3 General appearance: cooperative and no acute distress Head Head exam: Present normocephalic; Absent atraumatic Additional comments: Laceration with sutures in place left forehead Eye Eye exam: Present EOMI and PERRL ENT ENT exam: Present mucous membranes moist, normal exam and normal external ear exam Neck Neck exam: Present normal inspection; Absent lymphadenopathy, tenderness and thyromegaly Respiratory Respiratory exam: Absent accessory muscle use, respiratory distress and wheezes Cardiovascular Cardiovascular exam: Present normal rate and rhythm; Absent JVD GI/Abdominal GI/Abdominal exam: Present normal bowel sounds and soft; Absent organomegaly and tenderness Rectal Rectal exam: Present deferred Extremities Exam Extremities exam: Present full ROM, normal capillary refill and normal inspection; Absent tenderness Neurological Exam Neurological exam: Absent alert, CN II-XII intact, motor sensory deficit and oriented X3 Psychiatric Psychiatric exam: Present normal affect and normal mood; Absent anxious and depressed Skin Skin exam: Present dry and intact OBJ DATA Labs CBC & Chem 7: 02/22/21 05:58 02/22/21 05:58 Labs: Abnormal Lab Results 02/22/21 02/22/21 02/21/21 05:58 05:58 05:27 WBC RBC 3.11 L Hgb 9.8 L Hct 30.0 L MCHC MPV 12.1 H Neut % (Auto) Seg Neutrophils % Lymphocytes % Absolute Neutrophils VBG Lactic Acid Potassium Carbon Dioxide 21 L Anion Gap 7.0 L BUN 24 H Creatinine Glucose 114 H Hemoglobin A1c Calcium 8.4 L Albumin 2.6 L 2.5 L Globulin 4.3 H Albumin/Globulin Ratio 0.7 L 0.6 L Procalcitonin Urine Appearance Urine Protein Ur Leukocyte Esterase Urine RBC Urine WBC Urine Bacteria Urine Mucus 02/21/21 02/20/21 02/20/21 05:27 19:40 18:39 WBC 16.4 H RBC 3.69 L Hgb 11.1 L Hct 36.1 L MCHC 30.7 L MPV 12.2 H Neut % (Auto) 78.1 H Seg Neutrophils % Lymphocytes % Absolute Neutrophils 12.82 H VBG Lactic Acid 3.6 H Potassium Carbon Dioxide Anion Gap BUN Creatinine Glucose Hemoglobin A1c Calcium Albumin Globulin Albumin/Globulin Ratio Procalcitonin Urine Appearance Cloudy A Urine Protein 30 A Ur Leukocyte Esterase 500 A Urine RBC 20 H Urine WBC > 182 H Urine Bacteria Many A Urine Mucus Mod A 02/20/21 02/20/21 02/20/21 18:30 18:30 18:30 WBC 25.6 H RBC 4.03 L Hgb 12.2 L Hct 38.8 L MCHC MPV 12.1 H Neut % (Auto) Seg Neutrophils % 85 H Lymphocytes % 8 L Absolute Neutrophils VBG Lactic Acid Potassium Carbon Dioxide Anion Gap BUN Creatinine Glucose Hemoglobin A1c 7.1 H Calcium Albumin Globulin Albumin/Globulin Ratio Procalcitonin 0.20 H Urine Appearance Urine Protein Ur Leukocyte Esterase Urine RBC Urine WBC Urine Bacteria Urine Mucus 02/20/21 18:30 WBC RBC Hgb Hct MCHC MPV Neut % (Auto) Seg Neutrophils % Lymphocytes % Absolute Neutrophils VBG Lactic Acid Potassium 5.6 H Carbon Dioxide Anion Gap BUN 31 H Creatinine 1.3 H Glucose 223 H Hemoglobin A1c Calcium Albumin Globulin 4.1 H Albumin/Globulin Ratio 0.8 L Procalcitonin Urine Appearance Urine Protein Ur Leukocyte Esterase Urine RBC Urine WBC Urine Bacteria Urine Mucus Meds: Medications Acetaminophen (Acetaminophen 325 Mg Tablet) 650 mg PO Q6HP PRN; Protocol PRN Reason: Per Pain Protocol/Fever > 101 Last Admin: 02/21/21 20:34 Dose: 650 mg Documented by: Albuterol/Ipratropium (Ipratropium/Albuterol 3 Ml Ampul.Neb) 3 ml NEB Q4HRT PRN PRN Reason: Wheezing Artificial Tears (Carboxymethylcellulose Sodium 1 Each Droper.Gel) 1 each OU TID [facility] Last Admin: 02/22/21 09:21 Dose: 1 each Documented by: Bisacodyl (Bisacodyl 10 Mg Supp.Rect) 10 mg [place] DAILYP PRN PRN Reason: Constipation Bupropion HCl (Bupropion 150 Mg Tab.Xl.24h) 300 mg PO DAILY [facility] Last Admin: 02/22/21 09:22 Dose: Not Given Documented by: Ceftriaxone Sodium (Ceftriaxone 1 Gm Vial) 1 gm IV DAILY [facility] Last Admin: 02/22/21 09:15 Dose: 1 gm Documented by: Dextrose (Dextrose 50% 50 Ml Vial) 0 ml IV UD PRN PRN Reason: Hypoglycemia Diagnostic Test (Pha) (Accu-Chek 1 Each Strip) 1 each FS ACHS [facility] Last Admin: 02/22/21 07:33 Dose: 1 each Documented by: Docusate Sodium (Docusate Sodium 100 Mg Capsule) 100 mg PO BID [facility] Last Admin: 02/22/21 07:36 Dose: Not Given Documented by: Enoxaparin Sodium (Enoxaparin 40 Mg/0.4 Ml Syringe) 40 mg SQ DAILY [facility] Last Admin: 02/22/21 09:19 Dose: 40 mg Documented by: Flecainide Acetate (Flecainide 50 Mg Tablet) 100 mg PO BID [facility] Last Admin: 02/22/21 09:21 Dose: Not Given Documented by: Gabapentin (Gabapentin 100 Mg Capsule) 100 mg PO BID [facility] Last Admin: 02/22/21 09:20 Dose: Not Given Documented by: Glucose (Dextrose 31 Gm Oral.Susp) 15 gm PO PRN PRN PRN Reason: Hypoglycemia Hydrocortisone (Hydrocortisone Crm 1% Tube 30gm) 1 dose TOPICAL DAILYP PRN PRN Reason: Itching Sodium Chloride (Sodium Chloride 0.9%) 1,000 mls @ 0 mls/hr IV .Q0M [facility] Last Infusion: 02/20/21 19:42 Dose: Infused Documented by: Dextrose/Sodium Chloride (Dextrose 5%-Ns Iv Solution) 1,000 mls @ 100 mls/hr IV .Q10H [facility] Last Infusion: 02/22/21 06:23 Dose: Infused Documented by: Insulin Glargine (Insulin Glargine, Human 1 Unit/0.01 Ml) 10 unit SQ DAILY [facility] Last Admin: 02/22/21 09:19 Dose: 10 units Documented by: Insulin Human Lispro (Insulin Lispro 1 Unit/0.01 Ml Unit) 0 unit SQ Q6 [facility]; Protocol Last Admin: 02/22/21 07:35 Dose: Not Given Documented by: Loratadine (Loratadine 10 Mg Tablet) 10 mg PO QHS [facility] Last Admin: 02/21/21 20:35 Dose: 10 mg Documented by: Megestrol Acetate (Megestrol Acetate 400 Mg/10 Ml Oral.Susp) 200 mg PO DAILY [facility] Last Admin: 02/22/21 09:19 Dose: Not Given Documented by: Midodrine (Midodrine 5 Mg Tablet) 5 mg PO DAILY [facility] Last Admin: 02/22/21 09:19 Dose: Not Given Documented by: Ondansetron HCl (Ondansetron 4 Mg/2 Ml Vial) 4 mg IV Q6HP PRN PRN Reason: Nausea And Vomiting Pantoprazole Sodium (Pantoprazole 40 Mg Vial) 40 mg IV ACB [facility] Last Admin: 02/22/21 09:15 Dose: 40 mg Documented by: Polysaccharide Iron Complex (Iron Polysaccharide Complex 150 Mg Capsule) 150 mg PO QDAY [facility] Last Admin: 02/22/21 09:18 Dose: Not Given Documented by: Senna (Sennosides 1 Tablet) 2 tab PO [facility] Last Admin: 02/21/21 23:23 Dose: Not Given Documented by: Sodium Chloride (0.9 % Sodium Chloride 10 Ml Syringe) 10 ml IV Q8 [facility] Last Admin: 02/22/21 06:11 Dose: Not Given Documented by: Tamsulosin HCl (Tamsulosin 0.4 Mg Capsule) 0.4 mg PO BID [facility] Last Admin: 02/22/21 09:18 Dose: Not Given Documented by: Zinc Sulfate (Zinc Sulfate 50 Mg Capsule) 200 mg PO DAILY [facility] Last Admin: 02/22/21 09:22 Dose: Not Given Documented by: A/P Assessment and plan (1) Sepsis: Status: Acute (2) AMS (altered mental status): Status: Acute (3) SUZANNE (acute kidney injury): Status: Acute (4) Acute UTI: Status: Acute (5) Acute hyperkalemia: Status: Acute (6) Anemia, normocytic normochromic: Status: Acute (7) Delirium: Status: Acute (8) T2DM (type 2 diabetes mellitus): Status: Acute (9) Bilateral pneumonia: Status: Acute Narrative A/P Narrative: Assessment and Plans: 1. Delirium: DDx UTI with sepsis, pnuemonia with sepsis, progression of Alzheimer's dementia Stays in inpatient med surg Serial lactic acid Procalcitonin 0.20 mildly elevated Ammonia level 21 Blood culture X2 no growth to date Urine culture grew gram negative bacillus CoVID PCR negative 2L NS bolus followed by D5NS@100cc/hr Tylenol PRN fever DuoNEB NEB q4hr PRN wheezing or SOB Rocephin Zithromax cbc w/ auto diff in the morning to trend WBC Speech therapy recs. dysphagia with moist food and thick liquid Spoke with son BRYNN Greene [phone], okay with TPN/PPN in a few days with patient still refuse to eat 2. h/o Alzheimer's dementia complicating acute delirium: Treat underlying causes of acute delirium including UTI+/- pneumonia 3. Hyperkalemia: RESOLVED Serum potassium 5.6 at admission, 4.5 on 02/22/21 No aggressive/invasive measures such as dialysis, confirmed with son LOVEA Albuterol, calcium gluconate, Dextrose with regular insulin, and Lasix IV to be given in the ED Kayexalate contraindicated given mental status ECG Repeat CMP to trend serum potassium level 4. Stage 1 acute kidney injury: RESOLVED Serum Cr level 1.3 at admission, 0.8 on 02/22/21 Avoid nephrotoxic agents IV fluid (NS bolus and D5NS continuous infusion) as per #3 Repeat CMP to trend kidney functions 5. Normocytic normochromic anemia: cbc w/ auto diff in the morning to trend H/H, transfuse pRBC if hemoglobin <7.0, active bleeding, or symptomatic 6. T2DM: HgA1c 7.1 Hold Metformin or any other oral hypoglycemics Lantus 10 unit daily Insulin Aspart medium dose correctional scale q6hr Accu Chek q6hr Hypoglycemia protocol NPO with D5NS@100cc/hr until cleared by speech therapist for swallowing evaluation GI ppx: Protonix IV DVT ppx: Lovenox Code status: DNI DNR Prognosis: guarded Disposition: inpatient med surg; PT OT SLT consulted for d/c planning Time Spent With Patient Time: Total time spent is greater than 50% in coordination of care (as documented) at patient's floor/unit and/or counseling patient: QUALITY VTE Deep Vein Thrombosis/Pulmonary Embolism Present on Admission: No
[2021-02-22] MEDS: LORATADINE 10 MG TABLET PO SCH (23:08)
[2021-02-22] MEDS: SENNOSIDES 1 TABLET PO SCH (23:09)
[2021-02-23] MEDS: INSULIN LISPRO 1 UNIT/0.01 ML UNIT SQ SCH ×4 (00:57→17:14)
[2021-02-23] MEDS: ACETAMINOPHEN 325 MG TABLET PO PRN ×2 (04:27→18:42)
[2021-02-23] MEDS: 0.9 % SODIUM CHLORIDE 10 ML SYRINGE IV SCH ×3 (05:29→20:12)
[2021-02-23] MEDS: DEXTROSE 5%-NS 1,000 ML IV SCH ×3 (06:05→19:05)
[2021-02-23 07:18] LABS: Basophils # (Auto) 0.05 K/mcL (0.00-0.20); Basophils % (Auto) 0.5 % (0.0-2.0); Eosinophils # (Auto) 0.18 K/mcL (0.00-0.70); Eosinophils % (Auto) 1.9 % (0.0-7.0); Hematocrit 33.1 % (41.0-55.0); Hemoglobin 10.2 g/dL (13.5-16.5); Lymphocytes # (Auto) 3.34 K/mcL (1.50-4.80); Lymphocytes % (Auto) 34.8 % (15.0-49.0); Mean Cell Volume 98.5 fL (80.0-100.0); Mean Corpuscular HGB Conc 30.8 g/dL (31.0-36.0); Mean Platelet Volume 12.5 fL (7.4-10.4); Monocytes # (Auto) 0.78 K/mcL (0.10-0.90); Monocytes % (Auto) 8.1 % (1.0-12.0); Neutrophils % (Auto) 54.7 % (38.0-78.0); Platelet Count 186 K/mcL (140-440); RBC 3.36 M/mcL (4.50-5.90); Red Cell Distribution Width 13.2 % (11.5-14.5); WBC 9.6 K/mcL (4.5-11.0)
[2021-02-23] MEDS: DOCUSATE SODIUM 100 MG CAPSULE PO SCH ×2 (07:37→20:11)
[2021-02-23] MEDS: IRON POLYSACCHARIDE COMPLEX 150 MG CAPSULE PO SCH (07:37)
[2021-02-23] MEDS: TAMSULOSIN 0.4 MG CAPSULE PO SCH ×2 (07:37→20:11)
[2021-02-23] MEDS: GABAPENTIN 100 MG CAPSULE PO SCH ×2 (07:38→20:11)
[2021-02-23] MEDS: MEGESTROL ACETATE 400 MG/10 ML ORAL.SUSP PO SCH (07:38)
[2021-02-23] MEDS: FLECAINIDE 50 MG TABLET PO SCH ×2 (07:38→20:12)
[2021-02-23] MEDS: MIDODRINE 5 MG TABLET PO SCH (07:38)
[2021-02-23] MEDS: buPROPion 150 MG TAB.XL.24H PO SCH (07:39)
[2021-02-23] MEDS: PANTOPRAZOLE 40 MG VIAL IV SCH (07:43)
[2021-02-23] MEDS: CARBOXYMETHYLCELLULOSE SODIUM 1 EACH DROPER.GEL OU SCH ×3 (07:44→20:11)
[2021-02-23 07:57] LABS: ALT/SGPT 6 U/L (<40); AST/SGOT 12 U/L (<40); Albumin 2.4 gm/dL (3.2-5.2); Albumin/Globulin Ratio 0.7 (1.0-2.3); Alkaline Phosphatase 65 U/L (39-117); Bilirubin,Total 0.4 mg/dL (0.1-1.0); Blood Urea Nitrogen 11 mg/dL (8-23); Carbon Dioxide 20 mmol/L (22-30); Chloride 105 mmol/L (96-108); Globulin 3.4 gm/dL (2.2-3.7); Glomerular Filtration Rate 87; Glucose 97 mg/dL (70-105)
[2021-02-23] MEDS: INSULIN GLARGINE, HUMAN 1 UNIT/0.01 ML SQ SCH (09:19)
[2021-02-23] MEDS: ZINC SULFATE 50 MG CAPSULE PO SCH (09:20)
[2021-02-23] MEDS: ENOXAPARIN 40 MG/0.4 ML SYRINGE SQ SCH (09:20)
[2021-02-23] MEDS: cefTRIAXone 1 GM VIAL IV SCH (09:25)
--- NOTE | 2021-02-23 12:49 | Internal Med Progress Note ---
SUBJECTIVE Subjective Patient information: Note initiated : 02/23/21 at 12:45 pm Service Date, if different from initiated Date: [] Patient: Kiet Braun 86 y/o M admitted on 02/20/21 for Confusion/weakness. Chief Complaint: [Pneumonia and UTI] 02/21/21: afebrile overnight. Tolerating room air. Blood and urine cultures no growth to date. Patient is nonverbal. 02/22/21: Afebrile overnight. Tolerating room air. Urine culture grew gram negative bacillus. Patient is nonverbal and refused to eat or drink or take any pills. 02/22/21: Afebrile overnight. Tolerating room air. Urine culture grew E coli. Patient took a few bites of food. Patient is nonverbal. I spoke with son and POA Jose Martin Greene who expressed the willingness for IV nutrition if needed; wants full treatment minus resuscitation at this point. Constitutional Vitals: Vital Signs Temp Pulse Resp BP Pulse Ox 36.5 C 83 18 112/60 98 02/23/21 07:43 02/23/21 07:43 02/23/21 07:43 02/23/21 07:43 02/23/21 07:43 Period Temp Pulse Resp BP Sys/Gilbert Pulse Ox Last 24 Hr 36.5 C-36.8 C 63-83 16-18 107-133/60-67 94-98 Intake and Output 02/22/21 02/23/21 02/23/21 21:59 05:59 13:59 Intake Total 1170 1000 Output Total 103 251 1 Balance 1067 -251 999 Weight 69.428 kg Intake & Output: Intake & Output 02/22/21 02/23/21 02/23/21 21:59 05:59 13:59 Intake Total 1170 1000 Output Total 103 251 1 Balance 1067 -251 999 Weight 69.428 kg Intake: IV 1000 1000 Dextrose 5%-Ns IV Solution 1, 1000 1000 000 ml @ 100 mls/hr IV .Q10H [facility] Rx#:[id number] Oral 170 Output: Void Amount 100 250 # of times incontinent of urine 3 1 1 Other: Meal Nourishment/Supplement Breakfast Percent of Meal Consumed 100% Refused Feeding Ability Total Assistance Urine Appearance Clear Clear Urine Color Bright Yellow Bright Yellow Urine Odor Normal Normal Stool Size Small Stool Color Brown Stool Consistency Soft # Voids 2 1 # of times incontinent of 1 Bowels General appearance: cooperative and no acute distress Head Head exam: Present normocephalic; Absent atraumatic Additional comments: Left forehead laceration with sutures in place Eye Eye exam: Present EOMI and PERRL ENT ENT exam: Present mucous membranes moist, normal exam and normal external ear exam Neck Neck exam: Present normal inspection; Absent lymphadenopathy, tenderness and thyromegaly Respiratory Respiratory exam: Absent accessory muscle use, respiratory distress and wheezes Cardiovascular Cardiovascular exam: Present normal rate and rhythm; Absent JVD GI/Abdominal GI/Abdominal exam: Present normal bowel sounds and soft; Absent organomegaly and tenderness Rectal Rectal exam: Present deferred Extremities Exam Extremities exam: Present full ROM, normal capillary refill and normal inspection; Absent tenderness Neurological Exam Neurological exam: Present altered and CN II-XII intact; Absent motor sensory deficit and oriented X3 Psychiatric Psychiatric exam: Present normal affect and normal mood; Absent anxious and depressed Skin Skin exam: Present dry and intact OBJ DATA Labs CBC & Chem 7: 02/23/21 06:15 02/23/21 06:14 Labs: Abnormal Lab Results 02/23/21 02/23/21 02/22/21 06:15 06:14 05:58 WBC RBC 3.36 L Hgb 10.2 L Hct 33.1 L MCHC 30.8 L MPV 12.5 H Neut % (Auto) Seg Neutrophils % Lymphocytes % Absolute Neutrophils VBG Lactic Acid Potassium Carbon Dioxide 20 L Anion Gap 7.0 L BUN Creatinine Glucose Hemoglobin A1c Calcium 8.0 L Total Protein 5.8 L Albumin 2.4 L 2.6 L Globulin Albumin/Globulin Ratio 0.7 L 0.7 L Procalcitonin Urine Appearance Urine Protein Ur Leukocyte Esterase Urine RBC Urine WBC Urine Bacteria Urine Mucus 02/22/21 02/21/21 02/21/21 05:58 05:27 05:27 WBC 16.4 H RBC 3.11 L 3.69 L Hgb 9.8 L 11.1 L Hct 30.0 L 36.1 L MCHC 30.7 L MPV 12.1 H 12.2 H Neut % (Auto) 78.1 H Seg Neutrophils % Lymphocytes % Absolute Neutrophils 12.82 H VBG Lactic Acid Potassium Carbon Dioxide 21 L Anion Gap BUN 24 H Creatinine Glucose 114 H Hemoglobin A1c Calcium 8.4 L Total Protein Albumin 2.5 L Globulin 4.3 H Albumin/Globulin Ratio 0.6 L Procalcitonin Urine Appearance Urine Protein Ur Leukocyte Esterase Urine RBC Urine WBC Urine Bacteria Urine Mucus 02/20/21 02/20/21 02/20/21 19:40 18:39 18:30 WBC RBC Hgb Hct MCHC MPV Neut % (Auto) Seg Neutrophils % Lymphocytes % Absolute Neutrophils VBG Lactic Acid 3.6 H Potassium Carbon Dioxide Anion Gap BUN Creatinine Glucose Hemoglobin A1c 7.1 H Calcium Total Protein Albumin Globulin Albumin/Globulin Ratio Procalcitonin Urine Appearance Cloudy A Urine Protein 30 A Ur Leukocyte Esterase 500 A Urine RBC 20 H Urine WBC > 182 H Urine Bacteria Many A Urine Mucus Mod A 02/20/21 02/20/21 02/20/21 18:30 18:30 18:30 WBC 25.6 H RBC 4.03 L Hgb 12.2 L Hct 38.8 L MCHC MPV 12.1 H Neut % (Auto) Seg Neutrophils % 85 H Lymphocytes % 8 L Absolute Neutrophils VBG Lactic Acid Potassium 5.6 H Carbon Dioxide Anion Gap BUN 31 H Creatinine 1.3 H Glucose 223 H Hemoglobin A1c Calcium Total Protein Albumin Globulin 4.1 H Albumin/Globulin Ratio 0.8 L Procalcitonin 0.20 H Urine Appearance Urine Protein Ur Leukocyte Esterase Urine RBC Urine WBC Urine Bacteria Urine Mucus Meds: Medications Acetaminophen (Acetaminophen 325 Mg Tablet) 650 mg PO Q6HP PRN; Protocol PRN Reason: Per Pain Protocol/Fever > 101 Last Admin: 02/23/21 04:27 Dose: 650 mg Documented by: Albuterol/Ipratropium (Ipratropium/Albuterol 3 Ml Ampul.Neb) 3 ml NEB Q4HRT PRN PRN Reason: Wheezing Artificial Tears (Carboxymethylcellulose Sodium 1 Each Droper.Gel) 1 each OU TID [facility] Last Admin: 02/23/21 07:44 Dose: Not Given Documented by: Bisacodyl (Bisacodyl 10 Mg Supp.Rect) 10 mg [place] DAILYP PRN PRN Reason: Constipation Bupropion HCl (Bupropion 150 Mg Tab.Xl.24h) 300 mg PO DAILY [facility] Last Admin: 02/23/21 07:39 Dose: Not Given Documented by: Ceftriaxone Sodium (Ceftriaxone 1 Gm Vial) 1 gm IV DAILY [facility] Last Admin: 02/23/21 09:25 Dose: 1 gm Documented by: Dextrose (Dextrose 50% 50 Ml Vial) 0 ml IV UD PRN PRN Reason: Hypoglycemia Diagnostic Test (Pha) (Accu-Chek 1 Each Strip) 1 each FS ACHS [facility] Last Admin: 02/23/21 11:41 Dose: Not Given Documented by: Docusate Sodium (Docusate Sodium 100 Mg Capsule) 100 mg PO BID [facility] Last Admin: 02/23/21 07:37 Dose: Not Given Documented by: Enoxaparin Sodium (Enoxaparin 40 Mg/0.4 Ml Syringe) 40 mg SQ DAILY [facility] Last Admin: 02/23/21 09:20 Dose: Not Given Documented by: Flecainide Acetate (Flecainide 50 Mg Tablet) 100 mg PO BID [facility] Last Admin: 02/23/21 07:38 Dose: Not Given Documented by: Gabapentin (Gabapentin 100 Mg Capsule) 100 mg PO BID [facility] Last Admin: 02/23/21 07:38 Dose: Not Given Documented by: Glucose (Dextrose 31 Gm Oral.Susp) 15 gm PO PRN PRN PRN Reason: Hypoglycemia Hydrocortisone (Hydrocortisone Crm 1% Tube 30gm) 1 dose TOPICAL DAILYP PRN PRN Reason: Itching Sodium Chloride (Sodium Chloride 0.9%) 1,000 mls @ 0 mls/hr IV .Q0M [facility] Last Infusion: 02/20/21 19:42 Dose: Infused Documented by: Dextrose/Sodium Chloride (Dextrose 5%-Ns Iv Solution) 1,000 mls @ 100 mls/hr IV .Q10H [facility] Last Admin: 02/23/21 06:05 Dose: 100 mls/hr Documented by: Insulin Glargine (Insulin Glargine, Human 1 Unit/0.01 Ml) 10 unit SQ DAILY [facility] Last Admin: 02/23/21 09:19 Dose: Not Given Documented by: Insulin Human Lispro (Insulin Lispro 1 Unit/0.01 Ml Unit) 0 unit SQ Q6 [facility]; Protocol Last Admin: 02/23/21 11:41 Dose: Not Given Documented by: Loratadine (Loratadine 10 Mg Tablet) 10 mg PO QHS [facility] Last Admin: 02/22/21 23:08 Dose: Not Given Documented by: Megestrol Acetate (Megestrol Acetate 400 Mg/10 Ml Oral.Susp) 200 mg PO DAILY [facility] Last Admin: 02/23/21 07:38 Dose: Not Given Documented by: Midodrine (Midodrine 5 Mg Tablet) 5 mg PO DAILY [facility] Last Admin: 02/23/21 07:38 Dose: Not Given Documented by: Ondansetron HCl (Ondansetron 4 Mg/2 Ml Vial) 4 mg IV Q6HP PRN PRN Reason: Nausea And Vomiting Pantoprazole Sodium (Pantoprazole 40 Mg Vial) 40 mg IV ACB [facility] Last Admin: 02/23/21 07:43 Dose: 40 mg Documented by: Polysaccharide Iron Complex (Iron Polysaccharide Complex 150 Mg Capsule) 150 mg PO QDAY [facility] Last Admin: 02/23/21 07:37 Dose: Not Given Documented by: Senna (Sennosides 1 Tablet) 2 tab PO HS [facility] Last Admin: 02/22/21 23:09 Dose: Not Given Documented by: Sodium Chloride (0.9 % Sodium Chloride 10 Ml Syringe) 10 ml IV Q8 [facility] Last Admin: 02/23/21 05:29 Dose: Not Given Documented by: Tamsulosin HCl (Tamsulosin 0.4 Mg Capsule) 0.4 mg PO BID [facility] Last Admin: 02/23/21 07:37 Dose: Not Given Documented by: Zinc Sulfate (Zinc Sulfate 50 Mg Capsule) 200 mg PO DAILY [facility] Last Admin: 02/23/21 09:20 Dose: Not Given Documented by: A/P Assessment and plan (1) Sepsis: Status: Acute (2) AMS (altered mental status): Status: Acute (3) SUZANNE (acute kidney injury): Status: Acute (4) Acute UTI: Status: Acute (5) Acute hyperkalemia: Status: Acute (6) Anemia, normocytic normochromic: Status: Acute (7) Delirium: Status: Acute (8) T2DM (type 2 diabetes mellitus): Status: Acute (9) Bilateral pneumonia: Status: Acute Narrative A/P Narrative: Assessment and Plans: 1. Delirium: DDx UTI with sepsis, pnuemonia with sepsis, progression of Alzheimer's dementia Stays in inpatient med surg Serial lactic acid Procalcitonin 0.20 mildly elevated Ammonia level 21 Blood culture X2 no growth to date Urine culture grew E coli CoVID PCR negative 2L NS bolus followed by D5NS@100cc/hr Tylenol PRN fever DuoNEB NEB q4hr PRN wheezing or SOB Rocephin day 4 Zithromax day 4 cbc w/ auto diff in the morning to trend WBC Speech therapy recs. dysphagia with moist food and thick liquid Spoke with son BRYNN Greene [phone], okay with TPN/PPN in a few days with patient still refuse to eat 2. h/o Alzheimer's dementia complicating acute delirium: Treat underlying causes of acute delirium including UTI+/- pneumonia 3. Hyperkalemia: RESOLVED Serum potassium 5.6 at admission, 4.1 on 02/23/21 No aggressive/invasive measures such as dialysis, confirmed with maria victoria SWAIN Albuterol, calcium gluconate, Dextrose with regular insulin, and Lasix IV to be given in the ED Kayexalate contraindicated given mental status ECG Repeat CMP to trend serum potassium level 4. Stage 1 acute kidney injury: RESOLVED Serum Cr level 1.3 at admission, 0.7 on 02/23/21 Avoid nephrotoxic agents IV fluid (NS bolus and D5NS continuous infusion) as per #3 Repeat CMP to trend kidney functions 5. Normocytic normochromic anemia: cbc w/ auto diff in the morning to trend H/H, transfuse pRBC if hemoglobin <7.0, active bleeding, or symptomatic 6. T2DM: HgA1c 7.1 Hold Metformin or any other oral hypoglycemics Lantus 10 unit daily Insulin Aspart medium dose correctional scale q6hr Accu Chek q6hr Hypoglycemia protocol NPO with D5NS@100cc/hr until cleared by speech therapist for swallowing evaluation GI ppx: Protonix IV DVT ppx: Lovenox Code status: DNI DNR Prognosis: guarded Disposition: inpatient med surg; PT OT SLT consulted for d/c planning Time Spent With Patient Time: Total time spent is greater than 50% in coordination of care (as documented) at patient's floor/unit and/or counseling patient: QUALITY VTE Deep Vein Thrombosis/Pulmonary Embolism Present on Admission: No
[2021-02-23] MEDS: SENNOSIDES 1 TABLET PO SCH (20:11)
[2021-02-23] MEDS: LORATADINE 10 MG TABLET PO SCH (20:11)
[2021-02-24] MEDS: DEXTROSE 5%-NS 1,000 ML IV SCH ×2 (01:37→02:30)
[2021-02-24] MEDS: 0.9 % SODIUM CHLORIDE 10 ML SYRINGE IV SCH ×2 (04:14→12:57)
[2021-02-24] MEDS: PANTOPRAZOLE 40 MG VIAL IV SCH (07:44)
[2021-02-24] MEDS: INSULIN LISPRO 1 UNIT/0.01 ML UNIT SQ SCH ×2 (07:44→12:57)
[2021-02-24 08:16] LABS: Basophils # (Auto) 0.05 K/mcL (0.00-0.20); Basophils % (Auto) 0.7 % (0.0-2.0); Eosinophils # (Auto) 0.32 K/mcL (0.00-0.70); Eosinophils % (Auto) 4.3 % (0.0-7.0); Hematocrit 31.8 % (41.0-55.0); Hemoglobin 10.1 g/dL (13.5-16.5); Lymphocytes # (Auto) 2.69 K/mcL (1.50-4.80); Lymphocytes % (Auto) 35.9 % (15.0-49.0); Mean Cell Volume 95.2 fL (80.0-100.0); Mean Corpuscular HGB Conc 31.8 g/dL (31.0-36.0); Mean Platelet Volume 12.3 fL (7.4-10.4); Monocytes % (Auto) 10.7 % (1.0-12.0); Neutrophils % (Auto) 48.4 % (38.0-78.0); Platelet Count 200 K/mcL (140-440); RBC 3.34 M/mcL (4.50-5.90); Red Cell Distribution Width 13.1 % (11.5-14.5); WBC 7.5 K/mcL (4.5-11.0)
[2021-02-24 08:55] LABS: ALT/SGPT 6 U/L (<40); AST/SGOT 15 U/L (<40); Albumin 2.3 gm/dL (3.2-5.2); Albumin/Globulin Ratio 0.7 (1.0-2.3); Alkaline Phosphatase 70 U/L (39-117); Bilirubin,Total 0.6 mg/dL (0.1-1.0); Blood Urea Nitrogen 7 mg/dL (8-23); Calcium 8.1 mg/dL (8.6-10.4); Carbon Dioxide 18 mmol/L (22-30); Chloride 106 mmol/L (96-108); Globulin 3.4 gm/dL (2.2-3.7); Glomerular Filtration Rate 92; Glucose 135 mg/dL (70-105)
[2021-02-24] MEDS: MEGESTROL ACETATE 400 MG/10 ML ORAL.SUSP PO SCH (09:10)
[2021-02-24] MEDS: cefTRIAXone 1 GM VIAL IV SCH (09:11)
[2021-02-24] MEDS: INSULIN GLARGINE, HUMAN 1 UNIT/0.01 ML SQ SCH (09:11)
[2021-02-24] MEDS: buPROPion 150 MG TAB.XL.24H PO SCH (09:12)
[2021-02-24] MEDS: TAMSULOSIN 0.4 MG CAPSULE PO SCH (09:13)
[2021-02-24] MEDS: MIDODRINE 5 MG TABLET PO SCH (09:15)
[2021-02-24] MEDS: GABAPENTIN 100 MG CAPSULE PO SCH (09:16)
[2021-02-24] MEDS: ZINC SULFATE 50 MG CAPSULE PO SCH (09:18)
[2021-02-24] MEDS: ENOXAPARIN 40 MG/0.4 ML SYRINGE SQ SCH (09:20)
[2021-02-24] MEDS: IRON POLYSACCHARIDE COMPLEX 150 MG CAPSULE PO SCH (09:20)
[2021-02-24] MEDS: DOCUSATE SODIUM 100 MG CAPSULE PO SCH (09:21)
[2021-02-24] MEDS: CARBOXYMETHYLCELLULOSE SODIUM 1 EACH DROPER.GEL OU SCH (09:21)
[2021-02-24] MEDS: FLECAINIDE 50 MG TABLET PO SCH (09:24)
--- NOTE | 2021-02-24 10:37 | Discharge Summary ---
Discharge Provider Provider Patient information: Note initiated : 02/24/21 at 10:34 am Service Date, if different from initiated Date: [] Patient: Kiet Braun 86 y/o M admitted on 02/20/21 for Confusion/weakness. Chief Complaint: [UTI and pneumonia] Date of admission: 02/20/21 21:18 Discharge date: 02/24/21 Primary care physician: Obey De Luna Consults: 02/20/21 Consult to Physician [CONS] Stat Comment: Consulting Provider: Juan Alberto Redd Reason For Exam: Physician to Consult Discharge Meds Discharge Medications Home Medications acetaminophen 500 mg tablet 500 mg PO Q4H PRN 12/21/17 [History Confirmed 0 02/20/21 Last Taken Unknown] cyanocobalamin (vitamin B-12) 100 mcg/mL injection solution 1,000 mcg .ROUTE QWEEK 12/21/17 [History Confirmed 02/20/21 Last Taken Unknown] famotidine 20 mg tablet 20 mg PO Q12H tab 12/21/17 [History Confirmed 02/20/21 Last Taken 05/03/18 16:30] hydrocortisone 1 % topical cream 1 applic TOPICAL ONCE PRN g 12/21/17 [History Confirmed 02/20/21 Last Taken 05/03/18 08:30] insulin glargine 100 unit/mL subcutaneous solution 10 unit SUB-Q QAM ml 12/21/17 [History Confirmed 02/20/21 Last Taken 05/03/18 08:30] metformin 500 mg tablet 1,000 mg PO BID 12/21/17 [History Confirmed 02/20/21 Last Taken 05/03/18 16:30] bisacodyl 5 mg tablet 10 mg PO QHS 03/11/18 [History Confirmed 02/20/21 Last Taken Unknown] docusate sodium 100 mg tablet 100 mg PO BID 03/11/18 [History Confirmed 02/20/21 Last Taken 05/03/18 16:30] midodrine 10 mg tablet 5 mg PO QDAY tab 03/11/18 [History Confirmed 02/20/21 Last Taken 05/03/18 16:30] polysaccharide iron complex 150 mg iron capsule 150 mg PO QDAY cap 03/11/18 [History Confirmed 02/20/21 Last Taken 05/03/18 08:30] Artificial Tears (cmc) 1 drp OPHTHALMIC (EYE) TID 02/13/20 [History Confirmed 02/20/21 Last Taken Unknown] flecainide 100 mg PO BID 02/13/20 [History Confirmed 02/20/21 Last Taken Unknown] megestrol 200 mg PO DAILY 02/13/20 [History Confirmed 02/20/21 Last Taken Unknown] tamsulosin 0.4 mg PO BID 02/13/20 [History Confirmed 02/20/21 Last Taken Unknown] SteriLid 1 ea TOPICAL BID 02/20/21 [History Confirmed 02/20/21 Last Taken Unknown] bisacodyl 10 mg KS PRN PRN 02/20/21 [History Confirmed 02/20/21 Last Taken Unknown] bupropion HCl [Wellbutrin XL] 300 mg PO QAM 02/20/21 [History Confirmed 02/20/21 Last Taken Unknown] clonazepam 0.5 mg PO BID 02/20/21 [History Confirmed 02/20/21 Last Taken Unknown] epinephrine [EpiPen 2-Trav] 0.3 mg SUBCUT PRN PRN 02/20/21 [History Confirmed 02/20/21 Last Taken Unknown] gabapentin 100 mg PO BID 02/20/21 [History Confirmed 02/20/21 Last Taken Unknown] loratadine [Claritin] 10 mg PO QHS 02/20/21 [History Confirmed 02/20/21 Last Taken Unknown] ondansetron 4 mg PO PRN PRN 02/20/21 [History Confirmed 02/20/21 Last Taken Unknown] zinc sulfate 220 mg PO DAILY 02/20/21 [History Confirmed 02/20/21 Last Taken Unknown] COURSE Hospital Course Hospital course: Patient was admitted on February 20, 2021 for acute delirium and sepsis secondary to urinary tract infections and pneumonia. After blood and urine cultures were collected, patient was started on IV antibiotics Rocephin and Zithromax as well as IV fluid. Urine culture subsequently grew E. coli. Patient has been afebrile for more than 24 hours by February 24, leukocytosis resolved, and mental status back to his baseline. As such, it was deemed that patient has reached clinical stability and thus decision made [facility]. Since he finished 6-day course of IV antibiotics, he does not need to be given additional antibiotics. 2 weeks PCP follow-up set up for the patient. Discharge diagnosis: pneumonia and UTI Time Spent with Patient Time attestation: Total time spent providing and/or coordinating discharge services: Patient was admitted on February 20, 2021 for acute delirium and sepsis secondary to urinary tract infections and pneumonia. After blood and urine cultures were collected, patient was started on IV antibiotics Rocephin and Zithromax as well as IV fluid. Urine culture subsequently grew E. coli. Patient has been afebrile for more than 24 hours by February 24, leukocytosis resolved, and mental status back to his baseline. As such, it was deemed that patient has reached clinical stability and thus decision made to [facility]. Since he finished 6-day course of IV antibiotics, he does not need to be given additional antibiotics. 2 weeks PCP follow-up set up for the patient. EXAM Constitutional Vitals: Temp Pulse Resp BP Pulse Ox 36.6 C 79 16 134/71 94 02/24/21 07:11 02/24/21 07:11 02/24/21 07:11 02/24/21 07:11 02/24/21 07:11 General appearance: cooperative and no acute distress Head Head exam: Present atraumatic and normocephalic Eye Eye exam: Present EOMI and PERRL ENT ENT exam: Present mucous membranes moist, normal exam and normal external ear exam Neck Neck exam: Present normal inspection; Absent lymphadenopathy, tenderness and thyromegaly Respiratory Respiratory exam: Absent accessory muscle use, respiratory distress and wheezes Cardiovascular Cardiovascular exam: Present normal rate and rhythm; Absent JVD GI/Abdominal GI/Abdominal exam: Present normal bowel sounds and soft; Absent organomegaly and tenderness Rectal Rectal exam: Present deferred Extremities Exam Extremities exam: Present full ROM, normal capillary refill and normal inspectio n; Absent tenderness Neurological Exam Neurological exam: Present altered and CN II-XII intact; Absent alert, motor sensory deficit and oriented X3 Psychiatric Psychiatric exam: Present normal affect and normal mood; Absent anxious and depressed Skin Skin exam: Present dry and intact Discharge Data Data Completed and Pending Labs on day of discharge: Labs from last 24 hours 02/24/21 02/24/21 07:28 07:28 WBC 7.5 RBC 3.34 L Hgb 10.1 L Hct 31.8 L MCV 95.2 MCH 30.2 MCHC 31.8 RDW 13.1 Plt Count 200 MPV 12.3 H Neut % (Auto) 48.4 Lymph % (Auto) 35.9 Jay % (Auto) 10.7 Eos % (Auto) 4.3 Baso % (Auto) 0.7 Lymph # (Auto) 2.69 Jay # (Auto) 0.80 Eos # (Auto) 0.32 Baso # (Auto) 0.05 Absolute Neutrophils 3.64 Sodium 138 Potassium 3.9 Chloride 106 Carbon Dioxide 18 L Anion Gap 14.0 BUN 7 L Creatinine 0.6 L GFR Calculation 92 Glucose 135 H Calcium 8.1 L Total Bilirubin 0.6 AST 15 ALT 6 Alkaline Phosphatase 70 Total Protein 5.7 L Albumin 2.3 L Globulin 3.4 Albumin/Globulin Ratio 0.7 L Preliminary micro results at discharge 02/20/21 19:50 Blood Culture - Preliminary Blood 02/20/21 19:40 Blood Culture - Preliminary Blood Discharge Plan Patient/Caregiver Discharge Instructions Activity: as per physical therapy Diet: Dysphagia Level 5 Minced & Moist Foods Prescriptions: Continued hydrocortisone 1 % cream 1 applic TOPICAL ONCE PRN (Reason: Itching) RF: 0 insulin glargine [Lantus U-100 Insulin] 100 unit/mL solution 10 unit SUB-Q QAM RF: 0 cyanocobalamin (vitamin B-12) 100 mcg/mL solution 1,000 mcg .Route QWEEK RF: 0 famotidine 20 mg tablet 20 mg PO Q12H RF: 0 acetaminophen [Tylenol Extra Strength] 500 mg tablet 500 mg PO Q4H PRN (Reason: Pain) RF: 0 metformin 500 mg tablet 1,000 mg PO BID RF: 0 midodrine 10 mg tablet 5 mg PO QDAY RF: 0 megestrol 400 mg/10 mL (40 mg/mL) Suspension 200 mg PO DAILY RF: 0 flecainide 100 mg Tablet 100 mg PO BID RF: 0 tamsulosin 0.4 mg capsule 0.4 mg PO BID RF: 0 Artificial Tears (cmc) 1 % Drops 1 drp OPHTHALMIC (EYE) TID RF: 0 clonazepam 0.5 mg tablet 0.5 mg PO BID RF: 0 bisacodyl 10 mg Suppository 10 mg [place] PRN PRN (Reason: Constipation) RF: 0 gabapentin 100 mg capsule 100 mg PO BID RF: 0 epinephrine [EpiPen 2-Trav] 0.3 mg/0.3 mL Auto-Injector 0.3 mg subcut PRN PRN (Reason: Allergic Reaction) RF: 0 zinc sulfate 220 mg Capsule 220 mg PO DAILY RF: 0 ondansetron 4 mg Tablet,Disintegrating 4 mg PO PRN PRN (Reason: Nausea) RF: 0 loratadine [Claritin] 10 mg Tablet 10 mg PO QHS RF: 0 bupropion HCl [Wellbutrin XL] 300 mg Tablet Extended Release 24 Hr 300 mg PO QAM RF: 0 SteriLid Foam 1 ea TOPICAL BID RF: 0 bisacodyl 5 mg tablet 10 mg PO QHS RF: 0 docusate sodium 100 mg tablet 100 mg PO BID RF: 0 polysaccharide iron complex 150 mg iron capsule 150 mg PO QDAY RF: 0 Follow Up Plan Follow up with: Obey De Luna MD [Primary Care Provider] - Patient Disposition: Xfer SNF Prognosis: Serious Rehab Potential: Undetermined I certify that the patient requires SNF services: Yes Overall status at discharge: patient is back to baseline Discharge Orders: Discharge Order (Routine); Ordered 02/24/21 Ordered By: Juan Alberto PASTRANA VTE Deep Vein Thrombosis/Pulmonary Embolism Present on Admission: No
[2021-02-28] MEDS ORDERED: [UNRECOGNIZED DRUG - OTHER] SCH (09:00)
[2021-02-28] MEDS ORDERED: CYANOCOBALAMIN SCH (09:00)
== END 2021-02-24 14:55 | DRG 871 ==
LOC: ED 17:43 → MEDSUR 21:18
PROVIDERS: ADMIT Internal Medicine; ATTEND Internal Medicine